=== PATIENT | female | born 1940 | race Caucasian/White ===

== ENCOUNTER → 2016-10-31 | Outpatient (REF) | payer MEDICARE ==
[2016-11-03 10:25] LABS: ALBUMIN 3.7 GM/DL (3.2-5.2); ALBUMIN/GLOBULIN RATIO 1.03 (1.00-1.93); ALKALINE PHOSPHATASE 45 U/L (45-117); ALT/SGPT 18 U/L (12-78); ANION GAP 8 MEQ/L (8-16); AST/SGOT 17 U/L (15-37); BILIRUBIN,TOTAL 0.3 MG/DL (0.2-1.0); BLOOD UREA NITROGEN 34 MG/DL (7-18); CALCIUM LEVEL 8.7 MG/DL (8.8-10.2); CARBON DIOXIDE LEVEL 27 MEQ/L (21-32); CHLORIDE LEVEL 110 MEQ/L (98-107); CREATININE FOR GFR 0.73 MG/DL (0.55-1.02); GLOMERULAR FILTRATION RATE > 60.0 (>39); GLUCOSE, FASTING 87 MG/DL (83-110); POTASSIUM SERUM 4.6 MEQ/L (3.5-5.1); SODIUM LEVEL 145 MEQ/L (136-145); TOTAL PROTEIN 7.3 GM/DL (6.4-8.2)
[2016-11-04 12:34] LABS: CA 125 207.5 U/ML (<30.2)
== END ==
LOC: M LAB REF 10:44
PROVIDERS: ATTEND Obstetrics & Gynecology
DX: N86 Erosion and ectropion of cervix uteri (principal); N95.0 Postmenopausal bleeding; N81.3 Complete uterovaginal prolapse

== ENCOUNTER → 2016-10-31 | Outpatient (REF) | payer MEDICARE ==
[2016-10-31 15:09] LABS: BASO % 0.5 % (0.0-1.0); EOS # 0.1 K/mm3 (0.0-0.50); LARGE UNSTAINED CELL # 0.1 K/mm3 (0.0-0.4); LARGE UNSTAINED CELL % 1.9 % (0.0-4.0); LYMPH % 19.3 % (24.0-44.0); MEAN CORPUSCULAR HEMOGLOBIN 27.6 pg (27.0-33.0); MEAN CORPUSCULAR VOLUME 86.2 fl (80.0-96.0); MONO # 0.3 K/mm3 (0.0-0.8); MONO % 7.1 % (0.0-5.0); NEUTROPHILS # 3.3 K/mm3 (1.8-7.7); NEUTROPHILS % 68.2 % (36.0-66.0); PLATELET COUNT, AUTOMATED 351 k/mm3 (150-450); WHITE BLOOD COUNT 4.8 K/mm3 (4.0-10.0)
== END ==
LOC: M LAB REF 14:23
PROVIDERS: ATTEND Obstetrics & Gynecology
DX: N86 Erosion and ectropion of cervix uteri (principal)

== ENCOUNTER → 2016-11-03 | Outpatient (CLI) | payer MEDICARE ==
[~2016-11-03] MED LIST: GASTROGRAFIN SOLUTION 30ML (Q9963) As Ordered ONE; ISOVUE-370 76% 100ML VIAL (Q9967) As Ordered ONE
--- NOTE | 2016-11-03 12:00 | REP ---
CT study abdomen and pelvis with IV and oral contrast: History: Bleeding from erosion of cervix, vaginal prolapse. Question malignancy. Comparison study: January 30, 2006. CT contrast dose: 100 ml of Isovue [address] findings: Preliminary digital check writer radiograph demonstrates clips in the right upper quadrant post cholecystectomy. The lung bases are essentially clear. The liver and the spleen are normal in size, homogeneous in texture on postcontrast images. Clips are noted in the gallbladder fossa on axial images. No pancreatic abnormality is seen. The adrenal glands have a normal appearance. The kidneys enhance symmetrically and are morphologically intact bilaterally. Normal caliber aorta is seen. No retroperitoneal mass or adenopathy is seen. There is diverticulosis affecting the sigmoid colon and descending colon. There is mild mural thickening and pericolonic stranding in the distal descending sigmoid junction which may reflect mild diverticulitis. This should be correlated clinically. Small and large intestinal bowel loops are otherwise unremarkable. The appendix is not separately identified but no CT evidence of appendicitis is seen. No pelvic adenopathy is seen. No ovarian mass or cyst is seen. No free fluid is noted. There is fibroid change in the uterus including a dystrophic calcification in a subserosal fibroid posterior in the uterus. Uterine dimensions are 6.3 cm anterior to posterior including the fibroid, by 7.9 cm cranial to caudal, by 5.5 cm right to left. Urinary bladder is unremarkable. No bony destructive lesion is seen. No abdominal wall defect is observed. Impression: 1. Low density areas in the uterus consistent with fibroids. A calcified fibroid is seen peripherally in the uterus posteriorly. Mild uterine enlargement. 2. Left colonic diverticulosis with CT evidence consistent with mild diverticulitis at the descending sigmoid junction. 3. Postcholecystectomy. Signed by Gary San MD 11/03/2016 12:38 P
== END ==
LOC: M RAD 09:05
PROVIDERS: ATTEND Obstetrics & Gynecology
DX: N86 Erosion and ectropion of cervix uteri (principal); D25.2 Subserosal leiomyoma of uterus; K57.32 Diverticulitis of large intestine without perforation or abscess without bleeding
CPT/HCPCS: 74177; Q9963; Q9967

== ENCOUNTER → 2016-11-20 | Outpatient (CLI) | payer MEDICARE ==
--- NOTE | 2016-11-23 10:05 | RADONC ---
RADIATION ONCOLOGY CONSULTATION NOTE DATE: 11/20/2016 CHART NUMBER: [id number] DIAGNOSIS: Cervix/uterine cancer. ECOG PERFORMANCE STATUS: 0. CONSULTATION NOTE: Ms. 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 HISTORY OF PRESENT ILLNESS: The patient was in the usual state of health, but began developing some cervical discharge. On 11/13/2016 she underwent a cervical biopsy with pathology revealing a moderately differentiated adenocarcinoma, grade 2 consistent with an endometrial primary. It was noted that the amino peroxidase stains for estrogen and progesterone receptor positive for strongly positive as was the stain for Vimentin. This supports the diagnosis of an endometrial primary. Stains for P16 and CEA typically positive cervical adenocarcinomas were both negative. The pathology therefore was consistent with an endometrial adenocarcinoma. Clinically the lesion was described by Dr. Link as abnormal exophytic friable red 3 cm in diameter with extension to the vagina at the 5 o'clock position. 1-2 cm of extension was noted. It was noted to be movable. Parametria were negative. A CT scan of the pelvis and abdomen were undertaken and fibroids were seen in the uterus including a dystrophic calcification in the subserosal fibroid posterior in the uterus. The uterine dimensions were 6.3 cm anterior to posterior including the fibroid by 7.9 cm cranial to caudal by a 5.5 cm right to left. There was no lymphadenopathy seen. The patient has now been referred to us for discussion of the external beam portion of her treatment. She is also here to discuss her other therapeutic options. PAST MEDICAL HISTORY: The patient's past medical history is positive for glaucoma. She had a cholecystectomy in the past. ALLERGIES: The patient has NO KNOWN DRUG ALLERGIES. SOCIAL HISTORY: The patient does not smoke cigarettes nor abuse alcohol. FAMILY HISTORY: The patient's family history is positive for a father with lung cancer. REVIEW OF SYSTEMS: The patient's review of systems is noncontributory. She denies nausea, vomiting, fevers, chills, night sweats, diplopia, headaches, anxiety or depression, anorexia, weight loss, visual disturbances, chest pain, urinary or bowel difficulties, bone pain, or neurological problems. PHYSICAL EXAMINATION: The patient is a well-developed, well-nourished, female in no acute distress. HEENT exam is normocephalic, atraumatic. Extraocular movements are intact. There is no palpable cervical, supraclavicular, infraclavicular, axillary, or inguinal lymphadenopathy present. Lungs are clear to auscultation and percussion. Heart has a regular rate and rhythm. Abdomen is benign with no hepatosplenomegaly, masses, or tenderness. Medical Numerical Control Operator examination was deferred as it has just been undertaken by Dr. Link and will be undertaken shortly by Dr. Amezquita. Skeletal examination reveals no tenderness to pressure or percussion of the bony skeleton. Extremities reveal no clubbing, cyanosis, or edema. Neurologic exam is grossly intact, as is the remainder of the physical examination. ASSESSMENT: I had a very lengthy discussion with this patient at this time. If this patient were to undergo radiation in addition to external beam treatment she would require brachytherapy. We do not do brachytherapy at this facility and therefore I have set her up to be seen by Dr. Amezquita for evaluation for eligibility for the brachytherapy portion. I have also reviewed this patient's CT scans in detail. I have some concerns as to whether or not external beam brachytherapy would be the best choice for her. There are notable fibroid issues in the uterus itself and therefore a good isodose distribution for brachytherapy may be quite difficult. In addition, the tumor itself appears to be an endometrial primary thereby making adequate dose to the endometrium all the more necessary. I look forward to Dr. Amezquita's expert opinion and our close collaboration on this case. If the patient were to consider surgery she would still require postoperative radiation. If the patient were to undergo primary radiation and brachytherapy then we can coordinate that as well. I will defer to Dr. Amezquita's expertise with regards to any systemic therapy. Once again, I have referred the patient to Dr. Amezquita for further discussion. Once again thank you for allowing us to participate in the care of this very pleasant woman. I will keep you informed of any new developments as they occur. cc: MD Marco Joshua MD Scott Mitchell, MD
--- NOTE | 2016-12-09 11:12 | RADONC ---
RADIATION ONCOLOGY PROGRESS NOTE DATE: 12/08/2016 CHART NUMBER: [id number] Amezquita today, and he has reviewed Ms. Delacruz's pathology and physical examination. He and I had a very lengthy discussion, and he believes that this patient would be better served with hysterectomy. I agree wholeheartedly. In light of his recommendations, the patient will be undergoing surgery and will be returned to me for consideration of postoperative radiation therapy in an attempt to increase the likelihood of achieving local control. I look forward to working closely with Dr. Amezquita in the management of this patient, and I thank him for his expert opinion.
== END ==
LOC: M ONCR 14:05
PROVIDERS: ATTEND Radiology Radiation Oncology
DX: C55 Malignant neoplasm of uterus, part unspecified (principal)

== ENCOUNTER → 2016-12-10 | Outpatient (CLI) | payer MEDICARE ==
--- NOTE | 2016-12-14 09:40 | REP ---
Whole body PET CT scan: The the study is performed for staging of endometrial carcinoma. Comparison is the abdomen and pelvis CT dated 11/03/2016. Scanning is performed from skull base to the upper thighs. Neck and supraclavicular areas: There are no hypermetabolic foci. Chest: There is hypermetabolic uptake in a normal-sized node at the thoracic inlet on the left with the standard uptake value maximally measuring 14.7. There is hypermetabolic uptake in a left perihilar normal size node with the standard uptake value measuring 5.4. There is hypermetabolic uptake in a 5 mm node at the azygo-esophageal recess with the standard uptake value maximally measuring 6.1. Abdomen, pelvis and upper thighs: There is a 4 cm hypermetabolic focus in the uterus with a maximal standard uptake value measuring 29.0. There is physiologic radio labeling of the bladder anterior to the uterus. There is hypermetabolic uptake in a prevertebral node measuring 1.6 cm in diameter, anterior to the L3 vertebral body, the standard uptake value measures 10.0. There is hypermetabolic uptake in a prevertebral 4 mm node anterior to the the L4 vertebral body. The standard uptake value maximally measures 7.5. There is physiologic radio labeling of the renal pelves and ureters. There is nonspecific bowel uptake. Impression: There is hypermetabolic uptake in a thoracic 11 node on the left. There is hypermetabolic uptake in a left perihilar node. There is hypermetabolic uptake in a node at the azygo-esophageal recess. There is a large hypermetabolic focus in the uterus. There is hypermetabolic uptake in prevertebral nodes anterior to L3 and anterior to L4. The studies performed with 10 mCi of F 18 FDG. Signed by Kendall Saunders MD 12/14/2016 09:32 A
== END ==
LOC: M PLARAD 07:38
PROVIDERS: ATTEND Internal Medicine Medical Oncology
DX: C54.1 Malignant neoplasm of endometrium (principal)
CPT/HCPCS: 78815; A9552

== ENCOUNTER → 2017-01-27 | Outpatient (CLI) | payer MEDICARE ==
--- NOTE | 2017-01-29 08:12 | RADONC ---
RADIATION ONCOLOGY CONSULTATION NOTE DATE: 01/27/2017 CHART NUMBER: [id number] DIAGNOSIS: Uterine cancer. ECOG PERFORMANCE STATUS: 0. CONSULTATION NOTE: Ms. 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 The patient was initially seen by us on 11/20/2016 for discussion of possible postoperative radiation therapy in an attempt to achieve increased likelihood of achieving local control. Since the patient was seen by us, she underwent an exploratory laparotomy, total abdominal hysterectomy, bilateral salpingo-oophorectomy, bilateral pelvic lymphadenectomy, paraaortic lymph node sampling and omental biopsy. The procedure was done on 12/30/[address] Sergey Amezquita Jr. Pathology revealed a poorly differentiated endometrioid carcinoma with squamous differentiation. The tumor extended into the serosa. Cervical stromal extension was present and extensive. The tumor extended very close to the cauterized ectocervical margin. In addition, the parametrium on the left was positive for malignancy. Lymph vascular invasion was present and extensive. A total of four left pelvic lymph nodes were sampled and one was positive for metastatic adenocarcinoma. Two right pelvic lymph nodes were negative for metastatic disease. 1/4 paraaortic lymph nodes was also positive for metastatic adenocarcinoma. The patient is scheduled to initiate systemic therapy on and is presenting to us for consideration of external beam radiation in attempt to increase the likelihood of achieving local control. REVIEW OF SYSTEMS: The patient's review of systems is noncontributory. She has done well since surgery. Denies nausea, vomiting, fevers, chills, night sweats, diplopia, headaches, anxiety or depression, anorexia, weight loss, visual disturbances, chest pain, urinary or bowel difficulties, bone pain, or neurological problems. PHYSICAL EXAMINATION: The patient is a well-developed, well-nourished, 76-year-old female in no acute distress. HEENT exam is normocephalic, atraumatic. Extraocular movements are intact. There is no palpable cervical, supraclavicular, infraclavicular, axillary, or inguinal lymphadenopathy present. Lungs are clear to auscultation and percussion. Heart has a regular rate and rhythm. Abdomen is benign with no hepatosplenomegaly, masses, or tenderness. CHIEF METEOROLOGIST Exam: Deferred. Skeletal examination reveals no tenderness to pressure or percussion of the bony skeleton. Extremities reveal no clubbing, cyanosis, or edema. Neurologic exam is grossly intact, as is the remainder of the physical examination. ASSESSMENT: Clearly, the patient has stage IV disease at this point and systemic therapy is the mainstay of her treatment. In light of the extensive nature, however, of her disease, she is at great risk for local failure and external beam radiation therapy plus or minus intravaginal brachytherapy may be a consideration to increase the likelihood of achieving local control. As per my discussion with Dr. Norberto Waters, our medical oncologist, we are planning on delivering concomitant systemic therapy and local treatment. I have therefore scheduled the patient for simulation and initiation of treatment planning. I have once again discussed with the patient in detail the potential benefits as well as possible acute and chronic sequelae of external beam radiation therapy. We discussed logistics of treatment planning, simulation and subsequent fractionated daily radiation treatments. We will coordinate this patient's care with our medical oncologist as well as her other physicians. Thank you for allowing us to participate in the care of this very pleasant woman. If I could be of any further assistance or provide you with any information, please free to contact me anytime. As always warm regards. cc: MD Marco Marquez Jr., MD Dequan Dobbins MD
== END ==
LOC: M ONCR 09:41
PROVIDERS: ATTEND Radiology Radiation Oncology
DX: C54.1 Malignant neoplasm of endometrium (principal)

== ENCOUNTER 2017-02-04 13:39 | Outpatient (RCR) | payer MEDICARE ==
--- NOTE | 2017-02-06 14:05 | RADONC ---
RADIATION ONCOLOGY SIMULATION NOTE DATE: 02/04/2017 CHART NUMBER: [id number] Ms. Delacruz was taken to the CT scan for CT simulation of her pelvic field. CT was accomplished without difficulty or discomfort. Radiation treatment planning is underway and radiation treatments will begin subsequently. I was physically present throughout the course of CT simulation. An immobilization device was created without difficulty or discomfort. Radiation treatments will begin subsequently.
[2017-02-11] MEDS ORDERED: FENO145T PO (14:23)
[2017-02-11] MEDS ORDERED: ENOX40IN3 SQ (14:23)
[2017-02-11] MEDS ORDERED: VITMTA PO (18:51)
[2017-02-11] MEDS ORDERED: VISI1TAB PO (18:51)
[2017-02-11] MEDS ORDERED: CALC600T31 PO (18:51)
== END 2017-02-12 ==
LOC: M ONCR 13:39
PROVIDERS: ATTEND Radiology Radiation Oncology
DX: C53.9 Malignant neoplasm of cervix uteri, unspecified (principal)

== ENCOUNTER → 2017-02-04 | Outpatient (CLI) | payer MEDICARE ==
[~2017-02-04] MED LIST changes: +CALC600T31 PO; +ENOX40IN3 SQ; +FENO145T PO; -GASTROGRAFIN SOLUTION 30ML (Q9963) As Ordered ONE; -ISOVUE-370 76% 100ML VIAL (Q9967) As Ordered ONE; +VISI1TAB PO; +VITMTA PO
== END ==
LOC: M RAD 10:29
PROVIDERS: ATTEND Radiology Radiation Oncology
DX: C53.9 Malignant neoplasm of cervix uteri, unspecified (principal)

== ENCOUNTER 2017-02-11 14:10 | Emergency (ER) | payer MEDICARE ==
[~2017-02-11] VITALS: Ht 154.9 cm; Wt 53.2 kg
[2017-02-11] MEDS ORDERED: FENO145T PO (14:23)
[2017-02-11] MEDS ORDERED: ENOX40IN3 SQ (14:23)
[2017-02-11] MEDS ORDERED: NS 1,000 ML IV ONE ×2 (14:45→16:30)
[2017-02-11 15:09] LABS: BASO % 0.7 % (0.0-1.0); EOS # 0.2 10^3/uL (0.0-0.50); EOS % 2.6 % (0.0-3.0); IMMATURE GRANULOCYTE % 0.3 % (0-0); LYMPH # 1.1 10^3/uL (1.5-4.5); LYMPH % 17.5 % (24.0-44.0); MEAN CORPUSCULAR HEMOGLOBIN 27.6 pg (27.0-33.0); MEAN CORPUSCULAR VOLUME 86.2 fl (80.0-96.0); MONO # 0.5 10^3/uL (0.0-0.8); MONO % 7.8 % (0.0-5.0); NEUTROPHILS # 4.4 10^3/uL (1.8-7.7); NEUTROPHILS % 71.1 % (36.0-66.0); PLATELET COUNT, AUTOMATED 378 10^3/uL (150-450); RED CELL DISTRIBUTION WIDTH 13.6 % (11.5-14.5); WHITE BLOOD COUNT 6.1 10^3/uL (4.0-10.0)
[2017-02-11 15:44] LABS: CALCIUM LEVEL 10.1 MG/DL (8.8-10.2); CREATININE FOR GFR 0.97 MG/DL (0.55-1.02); GLOMERULAR FILTRATION RATE 59.8 (>39); POTASSIUM SERUM 3.9 MEQ/L (3.5-5.1)
[2017-02-11 16:43] LABS: INR 1.11
[2017-02-11] MEDS ORDERED: CLINDAMYCIN 900 MG in APPROPRIATE DILUENT 1 EA IV ONE (17:45)
[2017-02-11] MEDS ORDERED: VITMTA PO (18:51)
[2017-02-11] MEDS ORDERED: CALC600T31 PO (18:51)
[2017-02-11] MEDS ORDERED: VISI1TAB PO (18:51)
[2017-02-11 19:10] VITALS: BP 124/64
== END 2017-02-11 19:12 | disposition home or self-care (01) ==
LOC: M ED 14:10
DX: N93.8 Other specified abnormal uterine and vaginal bleeding (principal); Z85.9 Personal history of malignant neoplasm, unspecified; Z79.899 Other long term (current) drug therapy

== ENCOUNTER 2017-02-13 14:47 | Outpatient (RCR) | payer MEDICARE | END 2017-03-15 | LOC: M ONCR 14:47 | DX: C53.9 Malignant neoplasm of cervix uteri, unspecified (principal) | CPT/HCPCS: 77280 ==

== ENCOUNTER → 2017-03-11 | Outpatient (REF) | payer MEDICARE ==
[2017-03-11 13:51] LABS: FERRITIN 155 NG/ML (8-252); PERCENT SATURATION 14.4 % (13.2-45.0); TOTAL IRON BINDING CAPACITY 389 UG/DL (250-450)
== END ==
LOC: M LAB REF 12:44
DX: C53.8 Malignant neoplasm of overlapping sites of cervix uteri (principal); Z51.11 Encounter for antineoplastic chemotherapy
CPT/HCPCS: 83550

== ENCOUNTER 2017-03-12 14:44 | Inpatient (IN) | payer MEDICARE ==
[2017-03-12] MEDS: ONDANSETRON 4MG/2ML VIAL (J2405) IV ×3 (15:30→21:42)
[2017-03-12] MEDS: NS 1,000 ML IV (15:30)
[2017-03-12 15:57] LABS: BASO % 0.5 % (0.0-1.0); EOS # 0.1 10^3/uL (0.0-0.50); EOS % 0.8 % (0.0-3.0); HEMATOCRIT 30.3 % (36.0-47.0); HEMOGLOBIN 9.8 g/dl (12.0-16.0); IMMATURE GRANULOCYTE # 0.1 10^3/uL (0-0); IMMATURE GRANULOCYTE % 0.8 % (0-0); LYMPH % 1.3 % (24.0-44.0); MEAN CORPUSCULAR HEMOGLOBIN 27.8 pg (27.0-33.0); MEAN CORPUSCULAR HGB CONC 32.3 g/dl (32.0-36.5); MEAN CORPUSCULAR VOLUME 85.8 fl (80.0-96.0); MONO # 0.8 10^3/uL (0.0-0.8); NEUTROPHILS # 6.4 10^3/uL (1.8-7.7); PLATELET COUNT, AUTOMATED 346 10^3/uL (150-450); RED BLOOD COUNT 3.53 10^6/uL (4.00-5.40); RED CELL DISTRIBUTION WIDTH 14.7 % (11.5-14.5); WHITE BLOOD COUNT 7.5 10^3/uL (4.0-10.0)
[2017-03-12 16:08] LABS: ALBUMIN 3.6 GM/DL (3.2-5.2); ALBUMIN/GLOBULIN RATIO 1.06 (1.00-1.93); ALKALINE PHOSPHATASE 39 U/L (45-117); ALT/SGPT 17 U/L (12-78); ANION GAP 7 MEQ/L (8-16); AST/SGOT 16 U/L (7-37); BILIRUBIN,DIRECT < 0.1 MG/DL (0.0-0.2); BILIRUBIN,TOTAL 0.3 MG/DL (0.2-1.0); BLOOD UREA NITROGEN 30 MG/DL (7-18); CALCIUM LEVEL 9.1 MG/DL (8.8-10.2); CARBON DIOXIDE LEVEL 28 MEQ/L (21-32); CHLORIDE LEVEL 107 MEQ/L (98-107); CREATININE FOR GFR 0.69 MG/DL (0.55-1.02); GLOMERULAR FILTRATION RATE > 60.0 (>39); GLUCOSE, FASTING 164 MG/DL (83-110); LIPASE 97 U/L (73-393); POTASSIUM SERUM 3.1 MEQ/L (3.5-5.1); SODIUM LEVEL 142 MEQ/L (136-145)
[2017-03-12] MEDS: MORPHINE 2 MG/ML 1ML SYRINGE IV ×2 (16:11→19:28)
[2017-03-12] MEDS ORDERED: ISOVUE-370 76% 100ML VIAL (Q9967) As Ordered (16:13)
[2017-03-12 16:29] LABS: LYMPH # 0.1 10^3/uL (1.5-4.5); POSITIVE DIFF POS FLAG
[2017-03-12 16:30] LABS: NEUTROPHILS % 85.6 % (36.0-66.0)
[2017-03-12] MEDS: NS 500 ML IV (18:07)
[2017-03-12] MEDS ORDERED: BISACODYL 10 MG SUPP PR (18:15)
[2017-03-12 19:00] LABS: MAGNESIUM LEVEL 2.3 MG/DL (1.8-2.4)
[2017-03-12 19:07] LABS: LACTIC ACID SEPSIS PROTOCOL 1.5 MMOL/L (0.4-2.0)
[2017-03-12] MEDS: KCL 10MEQ IN 100ML SWI (KRUN) 10 MEQ in APPROPRIATE DILUENT 1 EA IV ×2 (19:36→19:44)
[2017-03-12] MEDS: LATANOPROST 0.005% OPHTH SOLN 2.5 ML OD (21:00)
[2017-03-12] MEDS: PANTOPRAZOLE 40MG INJ (PROTONIX) (C9113) IV (21:27)
[2017-03-12] MEDS: KCL 40MEQ IN D5/0.45NS 1000ML 1,000 ML IV (21:28)
[2017-03-12] MEDS: HEPARIN SOD (PORCINE) 5000 UNITS/ML VIAL SC (21:28)
[2017-03-12] MEDS ORDERED: HEPARIN SOD (PORCINE) 5000 UNITS/ML VIAL SC (22:00)
[2017-03-13 06:22] LABS: BASO % 0.5 % (0.0-1.0); EOS # 0.1 10^3/uL (0.0-0.50); EOS % 2.5 % (0.0-3.0); HEMATOCRIT 25.7 % (36.0-47.0); HEMOGLOBIN 8.1 g/dl (12.0-16.0); IMMATURE GRANULOCYTE % 0.5 % (0-0); MEAN CORPUSCULAR HEMOGLOBIN 27.8 pg (27.0-33.0); MEAN CORPUSCULAR HGB CONC 31.5 g/dl (32.0-36.5); MEAN CORPUSCULAR VOLUME 88.3 fl (80.0-96.0); MONO # 0.6 10^3/uL (0.0-0.8); MONO % 12.8 % (0.0-5.0); NEUTROPHILS # 3.6 10^3/uL (1.8-7.7); NEUTROPHILS % 81.7 % (36.0-66.0); PLATELET COUNT, AUTOMATED 253 10^3/uL (150-450); RED BLOOD COUNT 2.91 10^6/uL (4.00-5.40); RED CELL DISTRIBUTION WIDTH 15.2 % (11.5-14.5); WHITE BLOOD COUNT 4.4 10^3/uL (4.0-10.0)
[2017-03-13 06:35] LABS: ANION GAP 6 MEQ/L (8-16); BLOOD UREA NITROGEN 27 MG/DL (7-18); CARBON DIOXIDE LEVEL 26 MEQ/L (21-32); CHLORIDE LEVEL 115 MEQ/L (98-107); CREATININE FOR GFR 0.68 MG/DL (0.55-1.02); GLOMERULAR FILTRATION RATE > 60.0 (>39); GLUCOSE, FASTING 104 MG/DL (83-110); MAGNESIUM LEVEL 2.2 MG/DL (1.8-2.4); POTASSIUM SERUM 4.7 MEQ/L (3.5-5.1); SODIUM LEVEL 147 MEQ/L (136-145)
[2017-03-13 07:08] LABS: LYMPH # 0.1 10^3/uL (1.5-4.5); POSITIVE DIFF POS FLAG
[2017-03-13] MEDS: KCL 40MEQ IN D5/0.45NS 1000ML 1,000 ML IV (07:41)
[2017-03-13] MEDS: HEPARIN SOD (PORCINE) 5000 UNITS/ML VIAL SC ×2 (09:01→20:44)
[2017-03-13] MEDS: D5W/0.45% SODIUM CHLORIDE 1,000 ML IV ×2 (13:12→23:02)
[2017-03-13] MEDS: PANTOPRAZOLE 40MG INJ (PROTONIX) (C9113) IV (20:44)
[2017-03-13] MEDS: LATANOPROST 0.005% OPHTH SOLN 2.5 ML OD (20:45)
[2017-03-14] MEDS: D5W/0.45% SODIUM CHLORIDE 1,000 ML IV ×3 (03:30→20:25)
[2017-03-14 05:12] LABS: BASO % 0.6 % (0.0-1.0); EOS # 0.3 10^3/uL (0.0-0.50); EOS % 8.9 % (0.0-3.0); HEMATOCRIT 24.9 % (36.0-47.0); HEMOGLOBIN 7.9 g/dl (12.0-16.0); IMMATURE GRANULOCYTE % 0.3 % (0-0); LYMPH % 3.8 % (24.0-44.0); MEAN CORPUSCULAR HEMOGLOBIN 28.1 pg (27.0-33.0); MEAN CORPUSCULAR HGB CONC 31.7 g/dl (32.0-36.5); MEAN CORPUSCULAR VOLUME 88.6 fl (80.0-96.0); MONO # 0.5 10^3/uL (0.0-0.8); MONO % 15.8 % (0.0-5.0); NEUTROPHILS # 2.2 10^3/uL (1.8-7.7); NEUTROPHILS % 70.6 % (36.0-66.0); PLATELET COUNT, AUTOMATED 213 10^3/uL (150-450); RED BLOOD COUNT 2.81 10^6/uL (4.00-5.40); WHITE BLOOD COUNT 3.2 10^3/uL (4.0-10.0)
[2017-03-14 05:24] LABS: ANION GAP 5 MEQ/L (8-16); BLOOD UREA NITROGEN 14 MG/DL (7-18); CALCIUM LEVEL 7.6 MG/DL (8.8-10.2); CARBON DIOXIDE LEVEL 28 MEQ/L (21-32); CHLORIDE LEVEL 108 MEQ/L (98-107); CREATININE FOR GFR 0.59 MG/DL (0.55-1.02); GLOMERULAR FILTRATION RATE > 60.0 (>39); GLUCOSE, FASTING 86 MG/DL (83-110); POTASSIUM SERUM 3.8 MEQ/L (3.5-5.1); SODIUM LEVEL 141 MEQ/L (136-145)
[2017-03-14 05:27] LABS: LYMPH # 0.1 10^3/uL (1.5-4.5); POSITIVE DIFF POS FLAG
[2017-03-14 08:31] LABS: RETIC HEMOGLOBIN EQUIVALENT 32.9 pg (24-36); RETICULOCYTE # 45.9 10^9/L (17-77); RETICULOCYTE % 1.5 % (0.5-1.5)
[2017-03-14] MEDS: HEPARIN SOD (PORCINE) 5000 UNITS/ML VIAL SC ×2 (08:50→20:25)
[2017-03-14 09:08] LABS: ALBUMIN/GLOBULIN RATIO 1.07 (1.00-1.93); ALKALINE PHOSPHATASE 37 U/L (45-117); ALT/SGPT 15 U/L (12-78); ANION GAP 7 MEQ/L (8-16); AST/SGOT 15 U/L (7-37); BILIRUBIN,TOTAL 0.3 MG/DL (0.2-1.0); BLOOD UREA NITROGEN 13 MG/DL (7-18); CALCIUM LEVEL 7.6 MG/DL (8.8-10.2); CARBON DIOXIDE LEVEL 28 MEQ/L (21-32); CHLORIDE LEVEL 108 MEQ/L (98-107); CREATININE FOR GFR 0.64 MG/DL (0.55-1.02); FERRITIN 224 NG/ML (8-252); GLOMERULAR FILTRATION RATE > 60.0 (>39); GLUCOSE, FASTING 77 MG/DL (83-110); IRON (FE) 131 UG/DL (50-170); PERCENT SATURATION 43.2 % (13.2-45.0); POTASSIUM SERUM 4.2 MEQ/L (3.5-5.1); SODIUM LEVEL 143 MEQ/L (136-145); TOTAL IRON BINDING CAPACITY 303 UG/DL (250-450); TOTAL PROTEIN 5.8 GM/DL (6.4-8.2)
[2017-03-14] MEDS: LATANOPROST 0.005% OPHTH SOLN 2.5 ML OD (20:25)
[2017-03-14] MEDS: PANTOPRAZOLE 40MG INJ (PROTONIX) (C9113) IV (20:25)
[2017-03-15 04:10] LABS: BASO % 0.5 % (0.0-1.0); EOS # 0.3 10^3/uL (0.0-0.50); EOS % 12.8 % (0.0-3.0); HEMATOCRIT 24.9 % (36.0-47.0); IMMATURE GRANULOCYTE % 0.9 % (0-0); LYMPH % 7.1 % (24.0-44.0); MEAN CORPUSCULAR HEMOGLOBIN 28.3 pg (27.0-33.0); MEAN CORPUSCULAR HGB CONC 32.1 g/dl (32.0-36.5); MONO # 0.3 10^3/uL (0.0-0.8); MONO % 15.2 % (0.0-5.0); NEUTROPHILS # 1.3 10^3/uL (1.8-7.7); NEUTROPHILS % 63.5 % (36.0-66.0); PLATELET COUNT, AUTOMATED 195 10^3/uL (150-450); RED BLOOD COUNT 2.83 10^6/uL (4.00-5.40); RED CELL DISTRIBUTION WIDTH 14.6 % (11.5-14.5); WHITE BLOOD COUNT 2.1 10^3/uL (4.0-10.0)
[2017-03-15 04:20] LABS: LYMPH # 0.2 10^3/uL (1.5-4.5); POSITIVE DIFF POS FLAG
[2017-03-15 04:23] LABS: ANION GAP 8 MEQ/L (8-16); BLOOD UREA NITROGEN 8 MG/DL (7-18); CALCIUM LEVEL 7.4 MG/DL (8.8-10.2); CARBON DIOXIDE LEVEL 29 MEQ/L (21-32); CHLORIDE LEVEL 110 MEQ/L (98-107); GLOMERULAR FILTRATION RATE > 60.0 (>39); GLUCOSE, FASTING 89 MG/DL (83-110); MAGNESIUM LEVEL 2.2 MG/DL (1.8-2.4); POTASSIUM SERUM 3.4 MEQ/L (3.5-5.1); SODIUM LEVEL 147 MEQ/L (136-145)
[2017-03-15] MEDS: D5W/0.45% SODIUM CHLORIDE 1,000 ML IV (06:43)
[2017-03-15 08:09] LABS: HAPTOGLOBIN 233 mg/dL (34-200)
[2017-03-15] MEDS: HEPARIN SOD (PORCINE) 5000 UNITS/ML VIAL SC ×2 (09:49→20:40)
[2017-03-15] MEDS: POTASSIUM CHLORIDE 10 MEQ SR TABLET PO (09:49)
[2017-03-15] MEDS: SLF 3 ML SYR IV ×3 (14:33→20:40)
[2017-03-15] MEDS: LATANOPROST 0.005% OPHTH SOLN 2.5 ML OD (20:39)
[2017-03-15] MEDS: PANTOPRAZOLE 40MG INJ (PROTONIX) (C9113) IV (20:40)
[2017-03-16 04:38] LABS: BASO % 0.9 % (0.0-1.0); EOS # 0.3 10^3/uL (0.0-0.50); EOS % 8.3 % (0.0-3.0); HEMOGLOBIN 8.7 g/dl (12.0-16.0); IMMATURE GRANULOCYTE % 0.9 % (0-0); LYMPH % 6.1 % (24.0-44.0); MEAN CORPUSCULAR HEMOGLOBIN 28.6 pg (27.0-33.0); MEAN CORPUSCULAR HGB CONC 32.2 g/dl (32.0-36.5); MEAN CORPUSCULAR VOLUME 88.8 fl (80.0-96.0); MONO # 0.4 10^3/uL (0.0-0.8); MONO % 11.3 % (0.0-5.0); NEUTROPHILS # 2.4 10^3/uL (1.8-7.7); NEUTROPHILS % 72.5 % (36.0-66.0); PLATELET COUNT, AUTOMATED 256 10^3/uL (150-450); RED BLOOD COUNT 3.04 10^6/uL (4.00-5.40); RED CELL DISTRIBUTION WIDTH 14.6 % (11.5-14.5); WHITE BLOOD COUNT 3.3 10^3/uL (4.0-10.0)
[2017-03-16 04:57] LABS: ANION GAP 2 MEQ/L (8-16); BLOOD UREA NITROGEN 15 MG/DL (7-18); CALCIUM LEVEL 8.2 MG/DL (8.8-10.2); CARBON DIOXIDE LEVEL 30 MEQ/L (21-32); CHLORIDE LEVEL 111 MEQ/L (98-107); CREATININE FOR GFR 0.54 MG/DL (0.55-1.02); GLOMERULAR FILTRATION RATE > 60.0 (>39); GLUCOSE, FASTING 92 MG/DL (83-110); MAGNESIUM LEVEL 1.8 MG/DL (1.8-2.4); POTASSIUM SERUM 4.3 MEQ/L (3.5-5.1); SODIUM LEVEL 143 MEQ/L (136-145)
[2017-03-16 05:08] LABS: LYMPH # 0.2 10^3/uL (1.5-4.5); POSITIVE DIFF POS FLAG
[2017-03-16] MEDS: SLF 3 ML SYR IV ×2 (06:48→13:27)
[2017-03-16] MEDS: HEPARIN SOD (PORCINE) 5000 UNITS/ML VIAL SC (08:33)
[2017-03-16] MEDS: BISACODYL 10 MG SUPP PR (10:15)
[2017-03-16 10:52] LABS: FOLATE > 24.0 NG/ML (>5.4); VITAMIN B12 LEVEL 354 PG/ML (247-911)
== END 2017-03-16 14:04 | disposition home or self-care (01) | DRG 388 ==
LOC: M ED 14:44 → M ED INP 18:15 → M PCU 21:01
DX: K56.50 Intestinal adhesions [bands], unspecified as to partial versus complete obstruction (principal); D61.810 Antineoplastic chemotherapy induced pancytopenia; C54.1 Malignant neoplasm of endometrium; Z79.899 Other long term (current) drug therapy; E78.5 Hyperlipidemia, unspecified; H40.9 Unspecified glaucoma; E87.6 Hypokalemia; Z92.3 Personal history of irradiation; Z92.21 Personal history of antineoplastic chemotherapy

== ENCOUNTER 2017-03-17 11:29 | Outpatient (RCR) | payer MEDICARE | END 2017-04-15 | LOC: M ONCR 11:29 | DX: C53.9 Malignant neoplasm of cervix uteri, unspecified (principal) | CPT/HCPCS: 77336 ==

== ENCOUNTER → 2017-03-20 | Outpatient (REF) | payer MEDICARE ==
[2017-03-20 14:19] LABS: CA 125 12.3 U/ML (<30.2)
== END ==
LOC: M LAB REF 13:25
DX: C53.9 Malignant neoplasm of cervix uteri, unspecified (principal)
CPT/HCPCS: 86304

== ENCOUNTER → 2017-05-20 | Outpatient (CLI) | payer MEDICARE | LOC: M ONCR 10:05 | DX: C53.9 Malignant neoplasm of cervix uteri, unspecified (principal) | CPT/HCPCS: G0463 ==

== ENCOUNTER → 2017-08-24 | Outpatient (CLI) | payer MEDICARE | LOC: M WHC 12:22 | DX: Z12.31 Encounter for screening mammogram for malignant neoplasm of breast (principal); Z78.0 Asymptomatic menopausal state; Z85.9 Personal history of malignant neoplasm, unspecified; Z92.21 Personal history of antineoplastic chemotherapy | CPT/HCPCS: 77067 ==

== ENCOUNTER → 2017-11-24 | Outpatient (CLI) | payer MEDICARE ==
[~2017-11-24] MED LIST changes: -CALC600T31 PO; -ENOX40IN3 SQ; -FENO145T PO; +GASTROGRAFIN SOLUTION 30ML (Q9963) As Ordered; +ISOVUE-370 76% 100ML VIAL (Q9967) As Ordered; -VISI1TAB PO; -VITMTA PO
== END ==
LOC: M RAD 13:27
DX: C54.1 Malignant neoplasm of endometrium (principal); C79.82 Secondary malignant neoplasm of genital organs; K57.30 Diverticulosis of large intestine without perforation or abscess without bleeding; R91.8 Other nonspecific abnormal finding of lung field
CPT/HCPCS: Q9963

== ENCOUNTER → 2017-12-01 | Outpatient (CLI) | payer MEDICARE ==
[~2017-12-01] MED LIST changes: -GASTROGRAFIN SOLUTION 30ML (Q9963) As Ordered
== END ==
LOC: M RAD 17:13
DX: R91.1 Solitary pulmonary nodule (principal)
CPT/HCPCS: Q9967

== ENCOUNTER → 2018-01-05 | Outpatient (CLI) | payer MEDICARE ==
[2018-01-05 10:55] LABS: HEMATOCRIT 38.7 % (36.0-47.0); HEMOGLOBIN 12.1 g/dl (12.0-15.5); MEAN CORPUSCULAR HEMOGLOBIN 27.5 pg (27.0-33.0); MEAN CORPUSCULAR HGB CONC 31.3 g/dl (32.0-36.5); PLATELET COUNT, AUTOMATED 271 10^3/uL (150-450); RED CELL DISTRIBUTION WIDTH 15.2 % (11.5-14.5); WHITE BLOOD COUNT 4.6 10^3/uL (4.0-10.0)
[2018-01-05 11:39] LABS: ALBUMIN 3.7 GM/DL (3.2-5.2); ALBUMIN/GLOBULIN RATIO 1.06 (1.00-1.93); ALKALINE PHOSPHATASE 64 U/L (45-117); ALT/SGPT 22 U/L (12-78); ANION GAP 8 MEQ/L (8-16); AST/SGOT 36 U/L (7-37); BILIRUBIN,TOTAL 0.3 MG/DL (0.2-1.0); BLOOD UREA NITROGEN 29 MG/DL (7-18); CALCIUM LEVEL 9.5 MG/DL (8.8-10.2); CARBON DIOXIDE LEVEL 27 MEQ/L (21-32); CHLORIDE LEVEL 106 MEQ/L (98-107); CREATININE FOR GFR 0.78 MG/DL (0.55-1.30); GLOMERULAR FILTRATION RATE > 60.0 (>39); GLUCOSE, FASTING 83 MG/DL (70-100); POTASSIUM SERUM 4.4 MEQ/L (3.5-5.1); SODIUM LEVEL 141 MEQ/L (136-145); TOTAL PROTEIN 7.2 GM/DL (6.4-8.2)
== END ==
LOC: M LAB 10:11
DX: C54.1 Malignant neoplasm of endometrium (principal)
CPT/HCPCS: 80053

== ENCOUNTER 2018-04-12 08:54 | Inpatient (IN) | payer MEDICARE ==
[~2018-04-12] VITALS: Ht 165.1 cm; Wt 56.8 kg
[~2018-04-12 08:54] MED LIST changes: +CALC600T31 PO; +ENOX40IN3 SQ; +FENO145T13 PO; +FERR240T PO; +FERR325T3 PO; -ISOVUE-370 76% 100ML VIAL (Q9967) As Ordered; +PROC10TA4 PO; +TRAV04OPD OD; +VISI1TAB PO; +VITMTA PO; +ZOFR4TAB16 PO
--- NOTE | 2018-04-12 09:41 | REP ---
CT brain without contrast: History: Trauma. No comparison brain CT. CT findings: Preliminary digital mail service coordinator radiograph is unremarkable. Bone window settings demonstrate vascular calcification in the carotid siphons. Paranasal sinuses are clear as visualized. No skull fracture is seen. No significant scalp hematoma is appreciated. On soft tissue window settings, there is diffuse mild to moderate cerebral atrophy. There is no evidence of intracranial hemorrhage. Mild small vessel changes are seen in the periventricular white matter. There is no infarct, mass, extra-axial fluid collection, or midline shift. Impression: Vascular calcification and diffuse atrophy. No acute intracranial abnormality. Electronically Signed by Gary San MD 04/12/2018 09:33 A
--- NOTE | 2018-04-12 09:45 | REP ---
CT study of the cervical spine without contrast: History: Trauma. No comparison CT study of the cervical spine. Comparison is made with CT images from a PET CT study dated December 10, 2016. This patient apparently has a history of endometrial malignancy. Most recent CT study of the chest show the pulmonary metastasis. This is dated December 01, 2017. Technique: Helical scanning is acquired and overlapping 2 mm high resolution axial images were generated and reviewed at bone and soft tissue window settings. Coronal and sagittal multiplanar re-formations images are generated. CT findings: There is no evidence of cervical spine element fracture. No skull base fracture is seen. Cervical vertebral body heights are preserved. Alignment is normal. Facet joints are normally aligned bilaterally at each cervical level on multiplanar re-formations images. There is no evidence of intraspinal or paraspinal hematoma. No extra vertebral abnormality is seen. There are degenerative disc changes with narrowing and anterior osteophyte formation at C4 five through C7-T1. Posterior osteophytic ridging is seen at C7-T1 and C6-7. No bony destructive lesion is seen. There are multiple nodules visible in the apices of the lungs consistent with pulmonary metastatic disease similar to the December [address] study of the chest. No soft tissue neck mass or adenopathy is seen. Impression: Degenerative spondylosis changes as above. Incidental pulmonary metastatic lesions noted in the lung apices, otherwise negative CT study of the cervical spine without contrast. No fracture seen. Electronically Signed by Gary San MD 04/12/2018 09:37 A
--- NOTE | 2018-04-12 10:05 | REP ---
Clinical: Trauma. Technique: PA and lateral. Comparison: 01/30/2006 Findings: The cardiac silhouette is within normal limits and stable. Bilateral pulmonary nodules and mass lesions measuring up to 3.5 cm in the left mid lung zone along with suspected hilar adenopathy is most consistent with malignancy/metastatic disease. No focal consolidation, effusion, or pneumothorax. Skeletal structures are intact. Impression: Findings compatible with known pulmonary metastatic disease. No acute mediastinal or pleuroparenchymal trauma/injury. No acute consolidation, effusion, or pneumothorax. Electronically Signed by Kyree Romero MD 04/12/2018 09:57 A
[2018-04-12 11:09] LABS: BASO % 0.4 % (0.0-1.0); EOS # 0.3 10^3/uL (0.0-0.50); EOS % 2.9 % (0.0-3.0); HEMATOCRIT 44.5 % (36.0-47.0); HEMOGLOBIN 14.2 g/dl (12.0-15.5); LYMPH % 2.6 % (24.0-44.0); MEAN CORPUSCULAR HEMOGLOBIN 26.5 pg (27.0-33.0); MEAN CORPUSCULAR HGB CONC 31.9 g/dl (32.0-36.5); MONO % 10.8 % (0.0-5.0); NEUTROPHILS # 7.5 10^3/uL (1.8-7.7); NEUTROPHILS % 82.6 % (36.0-66.0); PLATELET COUNT, AUTOMATED 277 10^3/uL (150-450); RED BLOOD COUNT 5.36 10^6/uL (4.00-5.40); WHITE BLOOD COUNT 9.1 10^3/uL (4.0-10.0)
[2018-04-12 11:49] LABS: BLOOD UREA NITROGEN 49 MG/DL (7-18); CALCIUM LEVEL 14.1 MG/DL (8.8-10.2); CARBON DIOXIDE LEVEL 30 MEQ/L (21-32); CHLORIDE LEVEL 99 MEQ/L (98-107); CPK CREATINE PHOSPHOKINASE 110 U/L (26-192); CREATININE FOR GFR 1.26 MG/DL (0.55-1.30); FREE T4 1.45 NG/DL (0.76-1.46); GLOMERULAR FILTRATION RATE 44.1 (>39); GLUCOSE, FASTING 86 MG/DL (70-100); MAGNESIUM LEVEL 2.2 MG/DL (1.8-2.4); MB/CK RELATIVE INDEX 11.82 (< OR =4); POTASSIUM SERUM 4.2 MEQ/L (3.5-5.1); SODIUM LEVEL 139 MEQ/L (136-145); TROPONIN I 0.07 NG/ML (< 0.10)
[2018-04-12 11:53] LABS: LYMPH # 0.2 10^3/uL (1.5-4.5)
[2018-04-12] MEDS ORDERED: NS 1,000 ML IV ONE (12:00)
[2018-04-12] MEDS ORDERED: CALCITONIN SALMON (MIACALCIN) 400INTERNATIONAL UNITS/2ML INJ (J0630) SQ ONE (12:30)
[2018-04-12] MEDS ORDERED: FERR1TAB8 PO (12:32)
[2018-04-12] MEDS: MULTIVITAMINS/MINERALS THERAP 1 TAB PO SCH (14:32)
[2018-04-12] MEDS: FERROUS SULFATE 325MG TAB PO SCH (14:32)
[2018-04-12] MEDS: NS 1,000 ML IV SCH ×2 (14:32→20:58)
--- NOTE | 2018-04-12 15:27 | HPE ---
DATE OF ADMISSION: 04/12/2018 77-year-old female with past medical history of endometrial carcinoma status post hysterectomy, status post chemoradiation therapy, history of hyperlipidemia, and glaucoma presents to the emergency room after having multiple falls in the last 48 hours. She says that her legs just give out. She had no associated chest pain, palpitations, or shortness of breath with this. She has been followed by Dr. Calix, oncologist, due to the advancement of her cancer, now stage IV recurrent carcinoma. She has not been eating and drinking well for the past few weeks. When she came to the emergency room (ER), she was found to be in acute kidney injury and appeared very dehydrated and was started on a bolus of IV fluids. Also to note, her blood calcium level was found to be extremely high at 14.1. I did tell the nurse practitioner to give the patient subcutaneous calcitonin as well. The patient will be admitted for further management. Again, past medical history of recurrent stage IV endometrial carcinoma, history of hyperlipidemia, and iron deficiency anemia. ALLERGIES: She has no known drug allergies. FAMILY HISTORY: Noncontributory. SOCIAL HISTORY: Patient denies tobacco, alcohol, or illicit drugs. MEDICATIONS: She takes at home are as follows: - calcium 600 mg orally twice a day - fenofibrate 145 mg orally at bedtime - ferrous sulfate 325 mg orally daily - multivitamin one tablet orally daily - Travoprost one drop to right eye nightly Review of systems is negative for all ten major systems except what is mentioned in history of present illness (HPI). Vital signs: Blood pressure is 116/57, heart rate is 87, regular, respiratory rate 20, temperature 99.2, oxygen saturation 97% on room air. Head is atraumatic, normocephalic. Dry mucous membranes noted. Neck is supple, no jugular venous distention (JVD). Lungs are clear to auscultation. S1, S2 audible, no murmurs appreciated. Abdomen is soft, positive bowel sounds. There is no pedal edema. Skin intact. Neurologic examination: Patient is awake, alert, oriented times three. LABORATORY DATA: WBC 9.1, hemoglobin 14.2, hematocrit 44.5, platelets are 277,000, sodium 139, potassium 4.2, chloride 99, CO2 30, BUN 49, creatinine 1.26, calcium 14.1, glucose 86, TSH 1.3. Urinalysis is negative for urinary tract infection (UTI). CT of the head showed no intracranial bleed. CT of the cervical spine showed no fractures. IMPRESSION: 1. Falls. 2. Hypercalcemia. 3. Acute kidney injury (ALDA). PLAN: Patient will be admitted to the medical/surgical floor. Will continue IV fluids normal saline (NS) at 125 mL/hour and will get physical therapy/occupational therapy (PT/OT) involved. Will follow serum calcium levels. I am also sending a diagnostic panel for hypercalcemia. I am going to get intact parathyroid hormone (PTH) and also parathyroid hormone related peptide levels as well as 25-hydroxyvitamin D levels and 125-dihydroxyvitamin D levels. Will continue her preadmission medications. I am holding her calcium at this time. Depending on what her calcium level is in the morning, will consider getting nephrology on board, but for now the calcitonin given and the IV fluids will suffice. Her 12-EKG also did not show any shortened QT intervals. QTs were normal.
[2018-04-12 15:32] LABS: TOTAL 25(OH) VITAMIN D 80.6 NG/ML (30.0-100.0)
[2018-04-12 15:33] LABS: PTH INTACT 12.9 PG/ML (18.5-88.0)
[2018-04-12 17:35] VITALS: BP 126/61
[2018-04-12] MEDS: LATANOPROST 0.005% OPHTH SOLN 2.5 ML OD SCH (21:03)
[2018-04-12] MEDS: FENOFIBRATE 145 MG TAB (TRICOR) PO SCH (21:03)
[2018-04-12] MEDS: HEPARIN SOD (PORCINE) 5000 UNITS/ML VIAL SQ SCH (21:04)
[2018-04-12 22:00] VITALS: BP 106/53
[2018-04-13] MEDS: HEPARIN SOD (PORCINE) 5000 UNITS/ML VIAL SQ SCH ×3 (05:02→21:42)
[2018-04-13] MEDS: NS 1,000 ML IV SCH ×3 (05:04→21:42)
[2018-04-13 06:00] VITALS: BP 109/59
[2018-04-13 06:13] LABS: BASO % 0.5 % (0.0-1.0); EOS # 0.6 10^3/uL (0.0-0.50); EOS % 7.2 % (0.0-3.0); HEMATOCRIT 36.1 % (36.0-47.0); LYMPH # 0.3 10^3/uL (1.5-4.5); LYMPH % 3.7 % (24.0-44.0); MONO # 0.9 10^3/uL (0.0-0.8); NEUTROPHILS # 6.2 10^3/uL (1.8-7.7); NEUTROPHILS % 76.9 % (36.0-66.0); PLATELET COUNT, AUTOMATED 215 10^3/uL (150-450)
[2018-04-13 06:20] LABS: HEMOGLOBIN 11.2 g/dl (12.0-15.5)
[2018-04-13 06:34] LABS: BLOOD UREA NITROGEN 31 MG/DL (7-18); CARBON DIOXIDE LEVEL 25 MEQ/L (21-32); CHLORIDE LEVEL 112 MEQ/L (98-107); CREATININE FOR GFR 0.96 MG/DL (0.55-1.30); GLOMERULAR FILTRATION RATE > 60.0 (>39); GLUCOSE, FASTING 88 MG/DL (70-100); POTASSIUM SERUM 3.4 MEQ/L (3.5-5.1); SODIUM LEVEL 143 MEQ/L (136-145)
[2018-04-13 09:00] VITALS: BP 120/60
[2018-04-13] MEDS ORDERED: MULTIVITAMINS/MINERALS THERAP 1 TAB PO SCH (09:00)
[2018-04-13] MEDS: FERROUS SULFATE 325MG TAB PO SCH (10:13)
[2018-04-13] MEDS: MULTIVITAMINS/MINERALS THERAP 1 TAB PO SCH (10:13)
--- NOTE | 2018-04-13 11:08 | IPN ---
DATE OF SERVICE: 04/13/2018 Julieta is seen on [facility] while rounding for the hospitalists. She has a history of stage IV endometrial cancer squamous cell with innumerable metastases to lung and liver. She is having low back pain. It prohibits her walking. She gets severe pain in her back, and she has fallen. She presented with calcium of 14.1, which has been temporarily treated with a subcutaneous dose of calcitonin and some saline. No bisphosphonates given yet. Her oncologist is Dr. Calix, and she was last seen in January. I have reviewed office note, as well. PHYSICAL EXAMINATION: 120/60, pulse of 84, 97.3 degrees. General appearance: Is elderly, frail, resting in bed, complaining of low back pain. HEENT: Unremarkable. Lungs: Scattered wheezes. Heart: Regular rate and rhythm. Abdomen: Soft and nontender. Low back is tender to palpate over the lumbar region. No peripheral edema. Normal strength in the arms and legs. She is alert and conversant. LABORATORIES: Hemoglobin is 11.2. CBC otherwise unremarkable. Calcium is down to 10.0. Sodium 143, potassium 3.4. PTH intact is low, as expected. Vitamin D level is normal. IMPRESSION: Hypercalcemia. Most certainly from malignancy. I have canceled a bunch of the orders, such as a PTH related peptide and vitamin D assays, as this is certainly malignancy-related. I have ordered Zometa 4 mg intravenous (IV) times one. Will change her IV fluids to include some potassium. I have got a call into Dr. Calix from oncology. The patient would like to talk to her about her situation. Followup laboratory work has been ordered for the morning.
[2018-04-13] MEDS ORDERED: ACETAMINOPHEN 500 MG TAB PO PRN (11:15)
[2018-04-13] MEDS ORDERED: traMADol 50 MG TAB PO PRN (11:15)
--- NOTE | 2018-04-13 11:41 | REP ---
Clinical: Back pain. Technique: AP, lateral views of the lumbosacral spine. Findings: Advanced multilevel degenerative changes from L2-3 through L5-S1 include endplate sclerosis, osteophytosis, hypertrophic facet changes and disc space narrowing. No acute fracture / compression injury or subluxation. Impression: Advanced multilevel degenerative spondylosis. Electronically Signed by Kyree Romero MD 04/13/2018 11:33 A
[2018-04-13] MEDS ORDERED: ZOLEDRONIC ACID 4 MG in D5W 100 ML IV ONE (12:00)
[2018-04-13 14:00] VITALS: BP 116/64
[2018-04-13] MEDS: FENOFIBRATE 145 MG TAB (TRICOR) PO SCH (20:04)
[2018-04-13] MEDS: LATANOPROST 0.005% OPHTH SOLN 2.5 ML OD SCH (20:04)
--- NOTE | 2018-04-13 20:56 | ECGEPIP ---
Stationary ECG Study [facility] - ED Test Date: 2018-04-12 Pat Name: VITA OMALLEY Department: Room: - Gender: F Gas Jockey: : [id number] Requested By: BEN Phillips Order Number: [id number] Reading MD: Ayan Torrez Measurements Intervals [place] Rate: 89 P: 38 WA: 132 QRS: -45 QRSD: 94 T: -16 QT: 360 QTc: 440 Interpretive Statements SINUS RHYTHM POSSIBLE LEFT ATRIAL ENLARGEMENT LEFT ANTERIOR FASCICULAR BLOCK NONSPECIFIC ST & T-WAVE ABNORMALITY SIMILAR TO 03/12/17 Electronically Signed On 04-13-2018 20:56:35 EST by Ayan Torrez
[2018-04-13 22:00] VITALS: BP 121/69
[2018-04-14 06:00] VITALS: BP 107/54
[2018-04-14] MEDS: NS 1,000 ML IV SCH (06:06)
[2018-04-14] MEDS: HEPARIN SOD (PORCINE) 5000 UNITS/ML VIAL SQ SCH ×3 (06:07→21:25)
[2018-04-14 06:25] LABS: HEMATOCRIT 33.4 % (36.0-47.0); HEMOGLOBIN 10.7 g/dl (12.0-15.5); MEAN CORPUSCULAR HEMOGLOBIN 26.2 pg (27.0-33.0); MEAN CORPUSCULAR VOLUME 81.7 fl (80.0-96.0); PLATELET COUNT, AUTOMATED 190 10^3/uL (150-450); RED BLOOD COUNT 4.09 10^6/uL (4.00-5.40); WHITE BLOOD COUNT 7.2 10^3/uL (4.0-10.0)
[2018-04-14 06:50] LABS: BLOOD UREA NITROGEN 18 MG/DL (7-18); CALCIUM LEVEL 9.4 MG/DL (8.8-10.2); CARBON DIOXIDE LEVEL 22 MEQ/L (21-32); CHLORIDE LEVEL 112 MEQ/L (98-107); CREATININE FOR GFR 0.74 MG/DL (0.55-1.30); GLOMERULAR FILTRATION RATE > 60.0 (>39); GLUCOSE, FASTING 84 MG/DL (70-100); POTASSIUM SERUM 3.1 MEQ/L (3.5-5.1); SODIUM LEVEL 142 MEQ/L (136-145)
--- NOTE | 2018-04-14 06:52 | CR ---
DATE OF CONSULTATION: 04/13/2018 REASON FOR CONSULTATION: This is a inpatient hospital consultation for endometrial carcinoma and hypercalcemia. 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 The patient had been found to have, on her recent gynecological examination, studding of the vaginal vault as well as the upper cervical area. It was recommended that the patient go on chemotherapy with topotecan with a weekly regimen. The patient had not gone for any kind of chemotherapy and did not receive any in the outpatient department. She had presented to the hospital with low back pain causing her problems with ambulation and severe back pain. She presented with a calcium of 14.1 that has currently been treated with Zometa 4 mg. The patient had a lumbar spine x-ray that was done on admission, as well as the cervical spine, showing advanced multilevel degenerative spondylosis. She shows no acute fracture, compression injury or subluxation. Chest x-ray also shows findings compatible with known pulmonary metastatic disease. The patient currently is in no pain. She is completed supine in the bed and is able to move her toes and has no problems with bladder control at present. CURRENT MEDICATIONS: Include calcium, fenofibrate, ferrous sulfate, multivitamin, travoprost, and vision. FAMILY HISTORY: Noncontributory. SOCIAL HISTORY: Negative for tobacco or alcohol. REVIEW OF SYSTEMS: She relates that she has had no chest pain, palpitations, but she has not been eating and drinking for over several weeks. She complains of no back pain. Currently, she has no numbness or tingling, generalized fatigue, weakness, lethargy. PHYSICAL EXAMINATION: She is able to engage the examiner in conversation and give some history. Her weight is 56.8 kg, height 165 cm, temperature is 97.3, pulse is 83, respiratory rate is 18, blood pressure is 116/64, and pulse oximetry is 98. HEENT: Normocephalic, atraumatic. Pupils equal, round, reactive to light. Extraocular muscles intact. Her sclera is white, nonicteric. Oropharynx is otherwise clear. NECK: Her neck is supple. CHEST: Clear to auscultation and percussion. CARDIOVASCULAR: S1 and S2 are appreciated with no murmurs. ABDOMEN: Soft, globoid, nontender. NEUROLOGICAL EXAMINATION: Cranial nerves II through XII are intact. She appears to have no sensory or motor deficits at this point . CT shows vascular calcifications, diffuse atrophy, no acute intracranial abnormalities. On her laboratories her WBC count is 8.0, hemoglobin/hematocrit is 11/36, RDW is 15.7, platelets are 215,000, neutrophils are 76, lymphocytes are 3.7, monos are about 11.8. Her chemistries show a sodium of 143, potassium 3.4, chloride of 112, BUN of 31, creatinine of 0.96. On admission, her calcium was 14.1. CPK-MB was 13 and creatinine kinase was 110. IMPRESSION: Impression at this time is grossly metastatic stage IV endometrial carcinoma in a patient with a performance status of 4/4 on the ECOG scale. At this point, the patient is unlikely to be able to receive any more chemotherapy and palliative measures including hospice can be pursued at this particular point. I would recommend IV hydration, monitoring the calcium level and pain management as needed. The patient may not be able to be taken care of at home depending upon family needs and may need to be placed in a retirement with hospice there. Thank you for your confidence in this consultation.
[2018-04-14 08:56] LABS: VITAMIN B12 LEVEL > 2000 PG/ML (232-1245)
[2018-04-14] MEDS: FERROUS SULFATE 325MG TAB PO SCH (09:19)
[2018-04-14] MEDS: MULTIVITAMINS/MINERALS THERAP 1 TAB PO SCH (09:19)
[2018-04-14] MEDS: POTASSIUM CHLORIDE 10 MEQ SR TABLET PO SCH ×2 (11:09→21:25)
--- NOTE | 2018-04-14 12:58 | IPN ---
DATE: 04/14/2018 Julieta is seen [facility]. Her calcium is now back to normal. She is trying to get some physical therapy. She was seen by Dr. Calix. I appreciate her consultation. Per Dr. Calix's report, the patient is unlikely to receive any chemotherapy and palliative measures including hospice should be considered. When I asked the patient about her visit with Dr. Calix she indicates that they plan further chemotherapy and that she is going to "take things as they come in." So, obviously there is a disconnect going on there. PHYSICAL EXAMINATION: 107/54, pulse of 80, respiratory rate 15, 94% oxygen saturation on room air. General appearance: Elderly, frail, resting comfortably. Alert and conversant. HEENT: Unremarkable. No jugular venous distention (JVD). Lungs clear. Heart regular rhythm. Abdomen soft, nontender, no masses. Normal muscle strength. LABS: Potassium 3.1, calcium 9.4. CBC hemoglobin is down to 10.7 after hydration. I think that is now probably at her baseline. Lumbar spine films did not show any bony metastases there. IMPRESSION: Hypercalcemia secondary to malignancy. She has received IV Zometa 4 mg daily, hydration and some calcitonin. Her calcium is now normal. I have ordered some supplemental potassium for her. She is getting physical therapy. We have stopped her IV fluids. She would probably be ready for discharge or SNF level today. There is a disconnect between the patient's understanding of the plan as expressed by Dr. Calix's note. Will ask oncology reconcile this.
[2018-04-14 14:00] VITALS: BP 129/63
[2018-04-14] MEDS: LATANOPROST 0.005% OPHTH SOLN 2.5 ML OD SCH (21:25)
[2018-04-14] MEDS: FENOFIBRATE 145 MG TAB (TRICOR) PO SCH (21:25)
[2018-04-14 22:00] VITALS: BP 100/53
[2018-04-15 00:09] LABS: VITAMIN D 1,25 DIHYDROXY 30.9 pg/mL (19.9-79.3)
[2018-04-15] MEDS: HEPARIN SOD (PORCINE) 5000 UNITS/ML VIAL SQ SCH ×3 (05:36→21:08)
[2018-04-15 06:45] LABS: HEMATOCRIT 38.4 % (36.0-47.0); HEMOGLOBIN 12.1 g/dl (12.0-15.5); MEAN CORPUSCULAR HGB CONC 31.5 g/dl (32.0-36.5); MEAN CORPUSCULAR VOLUME 82.4 fl (80.0-96.0); PLATELET COUNT, AUTOMATED 212 10^3/uL (150-450); RED BLOOD COUNT 4.66 10^6/uL (4.00-5.40); WHITE BLOOD COUNT 8.1 10^3/uL (4.0-10.0)
[2018-04-15 07:13] LABS: BLOOD UREA NITROGEN 16 MG/DL (7-18); CALCIUM LEVEL 9.3 MG/DL (8.8-10.2); CARBON DIOXIDE LEVEL 22 MEQ/L (21-32); CHLORIDE LEVEL 112 MEQ/L (98-107); GLOMERULAR FILTRATION RATE > 60.0 (>39); GLUCOSE, FASTING 88 MG/DL (70-100); SODIUM LEVEL 142 MEQ/L (136-145)
[2018-04-15] MEDS: FERROUS SULFATE 325MG TAB PO SCH (08:32)
[2018-04-15] MEDS: MULTIVITAMINS/MINERALS THERAP 1 TAB PO SCH (08:33)
[2018-04-15] MEDS: POTASSIUM CHLORIDE 10 MEQ SR TABLET PO SCH ×2 (08:33→21:08)
--- NOTE | 2018-04-15 10:56 | DSES ---
DATE OF ADMISSION: 04/13/2018 DATE OF DISCHARGE: PRIMARY CARE PROVIDER: Dr. Dequan Dobbins. ENGRAVER BLOCK: Dr. Liya Calix. PRINCIPAL DIAGNOSIS: Severe hypercalcemia secondary to metastatic squamous cell carcinoma stage IV uterine cancer. HISTORY: Julieta Delacruz was admitted to the hospitalist service with severe hypercalcemia. Details in the history and physical on admission. HOSPITAL COURSE: Patient was admitted to a medical bed, re-hydrated with saline, given calcitonin with some mild reduction of her calcium from 14.1 to 10. She then was given a dose of Zometa 4 mg IV. Calcium normalized and has remained normal for the rest of her hospitalization. Her strength improved during her stay and per physical therapy, she is cleared to be discharged home. She was seen by Dr. Calix, her oncologist, who knows her stage IV endometrial cancer is grossly metastatic, unlikely to receive anymore chemotherapy. Palliative measures including hospice could be pursued as an outpatient. (I would note that the patient's take on the conversation was not congruent with Dr. Calix's note and the patient is under the belief that she is still a candidate for chemotherapy and plans to "take her cancer one step at a time". I did impress upon her during this hospitalization that she is unlikely to be a candidate for further treatment. Significant labs to date: Sodium 142, potassium 4.0, BUN 16, creatinine 0.8, calcium 9.3. Free T4, TSH normal. Vitamin D level 80. PTH intact, molecule 12.9 consistent with malignancy. White count 8.1, hemoglobin 12.1, platelets 211. She had a number of other tests ordered to work up her hypercalcemia, but I cancelled those as it was obviously related to her metastatic cancer. DISPOSITION: The patient is discharged home in improved and stable condition. She will be staying with a sister. She will followup with her primary care provider, Dr. Dequan Dobbins in a week. Her activities are as tolerated using a rolling walker. She will also followup with Dr. Calix per her office. She is on a regular diet. She will need a followup calcium level as an outpatient. This will need to be followed periodically as well. She will stop the supplemental calcium she was taking as an outpatient. Continue with fenofibrate 145 mg nightly, ferrous sulfate 325 mg daily, multivitamin and eye drops. Consideration given to stopping the iron and the fenofibrate based on an poor prognosis and limited life expectancy. A decision will be deferred to Dr. Dobbins. Prognosis is poor. Patient, per oncology is not a candidate for further chemotherapy.
[2018-04-15 14:00] VITALS: BP 105/55
[2018-04-15] MEDS: LATANOPROST 0.005% OPHTH SOLN 2.5 ML OD SCH (21:08)
[2018-04-15] MEDS: FENOFIBRATE 145 MG TAB (TRICOR) PO SCH (21:08)
[2018-04-15 22:00] VITALS: BP 117/59
[2018-04-16] MEDS: HEPARIN SOD (PORCINE) 5000 UNITS/ML VIAL SQ SCH ×2 (05:25→13:46)
[2018-04-16 06:00] VITALS: BP 114/62
[2018-04-16] MEDS: POTASSIUM CHLORIDE 10 MEQ SR TABLET PO SCH (08:12)
[2018-04-16] MEDS: FERROUS SULFATE 325MG TAB PO SCH (08:12)
[2018-04-16] MEDS: MULTIVITAMINS/MINERALS THERAP 1 TAB PO SCH (08:12)
[2018-04-19 00:06] LABS: PTH RELATED PEPTIDE 6.8 pmol/L (.)
== END 2018-04-16 13:57 | disposition home health service (06) | DRG 641 ==
LOC: EDSEX 08:54 → EDUNIT# 08:54 → EDBD 08:54 → M ED 08:54 → M ED INP 13:54 → M MSPAV 17:33 → OBSVTOIN 04-13 10:43 → M MSPAV 04-14 13:33
PROVIDERS: ADMIT Internal Medicine; ATTEND Family Medicine
DX: E83.52 Hypercalcemia (principal); N17.9 Acute kidney failure, unspecified; C78.7 Secondary malignant neoplasm of liver and intrahepatic bile duct; C78.00 Secondary malignant neoplasm of unspecified lung; C55 Malignant neoplasm of uterus, part unspecified; E78.5 Hyperlipidemia, unspecified; R29.6 Repeated falls; E86.0 Dehydration; Z79.899 Other long term (current) drug therapy

== ENCOUNTER 2018-05-21 15:23 | Inpatient (IN) | payer MEDICARE ==
[~2018-05-21] VITALS: Ht 165.1 cm; Wt 57.2 kg
[~2018-05-21 15:23] MED LIST changes: +FERR1TAB8 PO
[2018-05-21 16:56] LABS: BASO % 1.9 % (0.0-1.0); EOS % 1.9 % (0.0-3.0); HEMATOCRIT 39.6 % (36.0-47.0); HEMOGLOBIN 12.4 g/dl (12.0-15.5); LYMPH % 20.6 % (24.0-44.0); MEAN CORPUSCULAR HEMOGLOBIN 26.3 pg (27.0-33.0); MEAN CORPUSCULAR HGB CONC 31.3 g/dl (32.0-36.5); MEAN CORPUSCULAR VOLUME 83.9 fl (80.0-96.0); MONO # 0.1 10^3/uL (0.0-0.8); MONO % 8.4 % (0.0-5.0); NEUTROPHILS % 66.3 % (36.0-66.0); RED BLOOD COUNT 4.72 10^6/uL (4.00-5.40)
[2018-05-21 17:09] LABS: CREATININE FOR GFR 1.15 MG/DL (0.55-1.30); GLOMERULAR FILTRATION RATE 48.8 (>39)
[2018-05-21 17:10] LABS: ALBUMIN 2.6 GM/DL (3.2-5.2); BILIRUBIN,DIRECT 0.6 MG/DL (0.0-0.2); CALCIUM LEVEL 12.7 MG/DL (8.8-10.2); TOTAL PROTEIN 6.5 GM/DL (6.4-8.2)
[2018-05-21] MEDS ORDERED: NS 1,000 ML IV ONE (17:15)
[2018-05-21] MEDS ORDERED: MAGIC MOUTHWASH SUSPENSION BTL SS PRN (17:15)
[2018-05-21] MEDS ORDERED: ONDANSETRON 4MG/2ML VIAL (J2405) IV ONE (17:15)
[2018-05-21 17:16] LABS: LYMPH # 0.2 10^3/uL (1.5-4.5); NEUTROPHILS # 0.7 10^3/uL (1.8-7.7); PLATELET COUNT, AUTOMATED 12 10^3/uL (150-450); WHITE BLOOD COUNT 1.1 10^3/uL (4.0-10.0)
--- NOTE | 2018-05-21 18:27 | REPVR ---
EXAM: CT Abdomen and Pelvis Without Contrast EXAM DATE/TIME: 05/21/2018 5:39 PM CLINICAL HISTORY: 78 years old, female; Signs and symptoms; Nausea and vomiting; Prior surgery; Surgery date: 6+ months; Surgery type: Hysterectomy, d&c; Additional info: Nausea/vomiting TECHNIQUE: Axial computed tomography images of the abdomen and pelvis without contrast. All CT scans at this facility use at least one of these dose optimization techniques: automated exposure control; mA and/or kV adjustment per patient size (includes targeted exams where dose is matched to clinical indication); or iterative reconstruction. Coronal and sagittal reformatted images were created and reviewed. COMPARISON: CT ABD PELVIS WITH CONTRAST 11/24/2017 3:07 PM FINDINGS: Lower thorax: Multiple pulmonary parenchymal nodules measure up to 2 x 3.1 cm. findings consistent with metastatic disease. ABDOMEN: Liver: Extensive necrotic metastatic disease in the liver the largest mass in the right lobe of the liver measuring 9.9 x 6.8 cm. Gallbladder and bile ducts: There has been a cholecystectomy. Pancreas: Normal. No ductal dilation. Spleen: Normal. No splenomegaly. Adrenals: Normal. No mass. Kidneys and ureters: Normal. No hydronephrosis. Stomach and bowel: Normal. No obstruction. No mucosal thickening. Appendix: No evidence of appendicitis. PELVIS: Bladder: Unremarkable as visualized. Reproductive: There has been a hysterectomy. ABDOMEN and PELVIS: Intraperitoneal space: Small amount of free fluid in the cul-de-sac. Bones/joints: Mild central spinal stenosis at L4-5. Soft tissues: Umbilical hernia. Vasculature: The aorta demonstrates moderate atherosclerotic calcification. Lymph nodes: Normal. No enlarged lymph nodes. IMPRESSION: 1. Multiple pulmonary parenchymal nodules measure up to 2 x 3.1 cm. Findings consistent with metastatic disease. 2. Extensive necrotic metastatic disease in the liver the largest mass in the right lobe of the liver measuring 9.9 x 6.8 cm. 3. There has been a cholecystectomy. 4. There has been a hysterectomy. Electronically signed by: Gavino Maldonado On 05/21/2018 18:26:52 PM
--- NOTE | 2018-05-21 18:38 | CR.PDOC ---
General Date of Consultation: May 21, 2018 Consultation REASON FOR CONSULTATION/CHIEF COMPLAINT: patient with neutropenia for treatment with topotecan for stage IV endometrial cancer presented with 4- 5 days of frequent watery diarrhea denies any bleeding from stool but has some bleeding aroune the nare this am now stopped . + nausea now white pancytopenia HISTORY OF PRESENT ILLNESS: [ The patient has failed several lines of chemo for her endometrial cancer and has a PS of 2/4 when started on the TOPOTECAN know n marrow suppressive . ]. ALLERGIES: Please see below. HOME MEDICATIONS: Please see below. PAST MEDICAL HISTORY: 1. . 2. . PAST SURGICAL HISTORY: 1. 2. FAMILY HISTORY: Father: Mother: Siblings: Children: Hereditary Diseases: Unexpected deaths due to medical reasons: SOCIAL HISTORY: Marital status and/or living arrangements: [ sisters supportive ] Children: Employment: Tobacco use:[no ] ETOH: no] Illicit drug use: [no] IV drug use: no Other relevant social factors: REVIEW OF SYSTEMS: CONSTITUTIONAL: [ tired fatigue noted weakness no fever noted HEENT: [NC AT perrl sclera whtie ]. CARDIOVASCULAR: S1 S2 appreciated no murmurs are noted . RESPIRATORY: [ no sob no couhg ]. GENITOURINARY: no dysuria noted . MUSCULOSKELETAL: generalized weakness noted . GASTROINTESTINAL: m,ultipe bouts of frequent watery diarrhea that started 4-5 days ago t ried to take some Pedialyte without any chnage in stool stoppped eating to avoid stimulting her bowels . SKIN: [dry ]. NEUROLOGICAL: no numbness ]. PSYCHIATRIC: [ minimla anxiety ]. ENDOCRINE: [no change ]. HEMATOLOGIC/LYMPHATIC: [ nares with bleeding noted ]. ALLERGIC/IMMUNOLOGIC: . PHYSICAL EXAMINATION: VITAL SIGNS: Please see below. GENERAL APPEARANCE: [ NC at PERR sclera in white non icteric ]. HEENT: [jt clear no signs of any thrush ]. RESPIRATORY: [cleat to A&P]. CARDIOVASCULAR: S1 S2 appreciated RRR rate 96 . ABDOMEN: soft BS hyperactive no ascites or re bound . EXTREMITIES: [ thin no edema no petechia ]. NEUROLOGICAL: intact no foal deficiets . PSYCHIATRIC: intact . LABORATORY DATA: Please see below. ASSESSMENT/PLAN: 1. [Stage IV endometrial cancer Chemotherapy induced diarrhea Chemotherapy induced pancytopenia Chemo related fatigue Dehydration Plan Admit Hydrate symptom management for diarrhea neupogen 300 mcg sc daily intil the ANC is over 5K transfuse one unit of SD platelets Vital Signs/I&O Vital Signs Date Time Temp Pulse Resp B/P (MAP) Pulse Ox O2 Delivery O2 Flow Rate FiO2 05/21/18 15:24 97.9 107 17 108/54 (72) 95 Room Air Laboratory Data Labs 24H Laboratory Tests 2 05/21/18 15:56: Immature Granulocyte % (Auto) 0.9, White Blood Count 1.1L, Red Blood Count 4.72, Hemoglobin 12.4, Hematocrit 39.6, Mean Corpuscular Volume 83.9, Mean Corpuscular Hemoglobin 26.3L, Mean Corpuscular Hemoglobin Concent 31.3L, Red Ce ll Distribution Width 17.2H, Platelet Count 12*L, Neutrophils (%) (Auto) 66.3H, Lymphocytes (%) (Auto) 20.6L, Monocytes (%) (Auto) 8.4H, Eosinophils (%) (Auto) 1.9, Basophils (%) (Auto) 1.9H, Neutrophils # (Auto) 0.7L, Lymphocytes # (Auto) 0.2L, Monocytes # (Auto) 0.1, Eosinophils # (Auto) 0.0, Basophils # (Auto) 0.0, Nucleated Red Blood Cells % (auto) 0.0, Immature Platelet Fraction 7.4, Anion Ga p 13, Glomerular Filtration Rate 48.8, Calcium Level 12.7H, Aspartate Amino Transf (AST/SGOT) 81H, Alanine Aminotransferase (ALT/SGPT) 46, Alkaline Phosphatase 217H, Total Bilirubin 1.0, Direct Bilirubin 0.6H, Total Protein 6.5, Albumin 2.6L, Albumin/Globulin Ratio 0.67L, Lipase 87 CBC/BMP Laboratory Tests 05/21/18 15:56 Red Blood Count 4.72, Mean Corpuscular Volume 83.9, Mean Corpuscular Hemoglobin 26.3 L, Mean Corpuscular Hemoglobin Concent 31.3 L, Red Cell Distribution Width 17.2 H, Neutrophils (%) (Auto) 66.3 H, Lymphocytes (%) (Auto) 20.6 L, Monocytes (%) (Auto) 8.4 H, Eosinophils (%) (Auto) 1.9, Basophils (%) (Auto) 1.9 H, Neutrophils # (Auto) 0.7 L, Lymphocytes # (Auto) 0.2 L, Monocytes # (Auto) 0.1, Eosinophils # (Auto) 0.0, Basophils # (Auto) 0.0 Allergies Coded Allergies: No Known Allergies (Verified , 01/30/06) Home Medications Scheduled (Vision Formula 2) 1 Tab Tab, 1 TAB PO DAILY, (Reported) Fenofibrate (Fenofibrate) 145 Mg Tab, 145 MG PO QHS, (Reported) Ferrous Sulfate (Ferrous Sulfate) 325 Mg Tab, 325 MG PO DAILY, (Reported) Multivitamins *[facility] STOCKED* (Thera M Plus *[facility] STOCKED*) 1 Tab Tab, 1 TAB PO DAILY, (Reported) Travoprost (Travatan Z) 50 Drop/2.5 Ml Soln, 1 DROP OD QHS, (Reported) Liya Calix MD May 21, 2018 18:38
[2018-05-21] MEDS ORDERED: LOMOTIL 2.5MG/0.025MG TABLET PO PRN (18:45)
[2018-05-21 19:33] LABS: BASO % 2.5 % (0.0-1.0); EOS % 2.5 % (0.0-3.0); HEMATOCRIT 35.6 % (36.0-47.0); HEMOGLOBIN 11.3 g/dl (12.0-15.5); MEAN CORPUSCULAR HEMOGLOBIN 26.6 pg (27.0-33.0); MEAN CORPUSCULAR HGB CONC 31.7 g/dl (32.0-36.5); MEAN CORPUSCULAR VOLUME 83.8 fl (80.0-96.0); MONO # 0.1 10^3/uL (0.0-0.8); MONO % 9.9 % (0.0-5.0); NEUTROPHILS % 62.9 % (36.0-66.0); RED BLOOD COUNT 4.25 10^6/uL (4.00-5.40)
[2018-05-21 19:49] LABS: LYMPH # 0.2 10^3/uL (1.5-4.5); NEUTROPHILS # 0.5 10^3/uL (1.8-7.7); PLATELET COUNT, AUTOMATED 7 10^3/uL (150-450); WHITE BLOOD COUNT 0.8 10^3/uL (4.0-10.0)
[2018-05-21] MEDS ORDERED: NS 1,000 ML IV SCH (20:45)
[2018-05-21] MEDS: LATANOPROST 0.005% OPHTH SOLN 2.5 ML OD SCH (21:00)
--- NOTE | 2018-05-21 21:44 | HPE ---
DATE OF ADMISSION: 05/21/2018 CHIEF COMPLAINT: Decreased oral intake, weakness, diarrhea. HISTORY OF PRESENT ILLNESS: This is a 78-year-old female with a past medical history of stage IV endometrial cancer, status post hysterectomy, currently receiving chemotherapy with topotecan, last dose was 05/14/2018, who presents with a chief complaint of a several day history of poor oral intake, dry mouth, significant watery diarrhea, poor appetite, and overall weakness and malaise. The patient reports that she has felt unwell since her last topotecan chemotherapy on 05/14/2018. She denies any fevers. No respiratory symptoms of cough or congestion. EMERGENCY ROOM COURSE: In the emergency room, the patient was noted to be neutropenic, thrombocytopenic, but not febrile. Her oncologist, Dr. Calix, saw her. She was recommended for a platelet transfusion and admission for monitoring. Platelets were ordered and currently pending transfusion. Dr. Calix recommended that she also be admitted for IV hydration. REVIEW OF SYSTEMS: Negative in 14 out of 14 systems except as noted above. PAST MEDICAL HISTORY: 1. Stage IV endometrial cancer. 2. History of hyperlipidemia. PAST SURGICAL HISTORY: 1. History of cholecystectomy. 2. Hysterectomy. MEDICATIONS: The patient's home medications are: - fenofibrate 145 mg daily - ferrous sulfate 325 mg daily - multivitamin one tablet daily - Travoprost one drop OD at night - Vision Formula one tablet by mouth daily ALLERGIES: No known drug allergies. SOCIAL HISTORY: The patient is . She lives with her sister. She has never had any children. No smoking, alcohol, or drugs. FAMILY HISTORY: No family history of cancer. PHYSICAL EXAMINATION: The patient is currently hemodynamically stable, afebrile at 96. Blood pressure 108/74, tachycardic mildly to 107, respiratory rate 17, saturating 95% on room air. GENERAL: She is in no acute distress but very frail and fatigued appearing. HEENT: She has some dried blood in her nostril. Oropharynx is dry. CARDIOVASCULAR: She is slightly tachycardic. No murmurs, rubs or gallops. LUNGS: Clear to auscultation bilaterally. ABDOMEN: Soft, nontender, nondistended. Positive bowel sounds. EXTREMITIES: No clubbing, cyanosis or edema. SKIN: Intact. NEUROLOGIC: She is alert and oriented times three. Follows simple commands. No focal neurologic deficits. PSYCHIATRIC: Mood is stable. LABORATORIES: Reveal a total white count of 0.8, hemoglobin 11.3, platelets of 7. Initially when she came in, her platelets were 12 and her white count was 1.1. Chemistry reveals a creatinine of 1.15, her last creatinine was 0.74. Her BUN is elevated to 90. Her albumin is 2.6. IMAGING: She had a CT of the abdomen and pelvis done, which shows multiple pulmonary parenchymal nodules measuring up to 2 x 3.1 cm, consistent with metastatic disease. She has extensive necrotic metastatic disease in the liver, the largest mass in the right lobe of the liver measuring 9 x 6 cm. ASSESSMENT AND PLAN: This is a 78-year-old female with metastatic endometrial cancer and hyperlipidemia, who presents status post recent chemotherapy with topotecan with poor oral intake, diarrhea, fatigue, found to be neutropenic and thrombocytopenic. 1. Thrombocytopenia. The patient does currently have some bleeding from her nose. Dr. Calix was [employer] consultant and she saw the patient and recommended platelet transfusion. If she continues to bleed, her goal platelets should be greater than 50. If she is not bleeding, typically platelets above 10 is acceptable. It appears her epistaxis has currently stopped. She currently does not need any red cell transfusion. 2. Neutropenia. The patient is neutropenic, however, she is not currently having fevers so no antibiotics are indicated. Should she spike, she will need broad spectrum antibiotics for neutropenic fever coverage. The patient was recommended for one dose of Neupogen times one for the neutropenia. 3. Acute kidney injury. The patient does have acute kidney injury with elevated creatinine from her baseline and quite an elevated BUN. I have placed her on IV fluids, normal saline at 75 mL per hour. This will continue to be monitored. 4. Stage IV endometrial cancer. At this time, it does not appear that she tolerated her last chemotherapy well. Prognosis and further candidacy for chemotherapy to be determined by her oncologist. If prognosis is poor. Should consider palliative care consult and inpatient transition to hospice, if appropriate. 5. Fluids, electrolytes, nutrition (FEN). At this time, the patient has a poor appetite and is requesting a liquid diet only. We will put her on Zofran as needed. 6. Deep vein thrombosis (DVT) prophylaxis. Not indicated at this time. DISPOSITION: Social work consult to facilitate disposition planning. MTDD
[2018-05-22] VITALS (7 sets, daily range): BP systolic 98–117; BP diastolic 56–65
[2018-05-22 01:54] LABS: HEMATOCRIT 30.1 % (36.0-47.0); HEMOGLOBIN 9.6 g/dl (12.0-15.5); MEAN CORPUSCULAR HEMOGLOBIN 26.7 pg (27.0-33.0); MEAN CORPUSCULAR HGB CONC 31.9 g/dl (32.0-36.5); MEAN CORPUSCULAR VOLUME 83.8 fl (80.0-96.0); RED BLOOD COUNT 3.59 10^6/uL (4.00-5.40)
[2018-05-22 02:01] LABS: PLATELET COUNT, AUTOMATED 15 10^3/uL (150-450); WHITE BLOOD COUNT 0.5 10^3/uL (4.0-10.0)
[2018-05-22 02:17] LABS: BLOOD UREA NITROGEN 65 MG/DL (7-18); CALCIUM LEVEL 10.3 MG/DL (8.8-10.2); CARBON DIOXIDE LEVEL 27 MEQ/L (21-32); CHLORIDE LEVEL 109 MEQ/L (98-107); CREATININE FOR GFR 0.82 MG/DL (0.55-1.30); GLOMERULAR FILTRATION RATE > 60.0 (>39); GLUCOSE, FASTING 101 MG/DL (70-100); POTASSIUM SERUM 3.4 MEQ/L (3.5-5.1); SODIUM LEVEL 142 MEQ/L (136-145)
[2018-05-22] MEDS ORDERED: FENOFIBRATE 145 MG TAB (TRICOR) PO SCH (09:00)
[2018-05-22] MEDS ORDERED: MULTIVITAMINS/MINERALS THERAP 1 TAB PO SCH (09:00)
[2018-05-22] MEDS: FERROUS SULFATE 325MG TAB PO SCH (09:24)
[2018-05-22] MEDS: MULTIVITAMINS/MINERALS THERAP 1 TAB PO SCH (09:25)
--- NOTE | 2018-05-22 09:42 | IPN ---
DATE OF SERVICE: 05/22/2018 Julieta is seen in PCU. She was admitted with critical neutropenia and thrombocytopenia secondary to chemotherapy. She also is hypercalcemic. She denies any fever. She had a bit of scant bleeding from the nose today but no luis enrique epistaxis. No rectal bleeding or urinary bleeding. She has not had any recurrence of her diarrhea. PHYSICAL EXAMINATION: 110/56, afebrile. T-max 98 degrees. General appearance: Chronically ill-appearing, on chemotherapy, alopecia but does not look septic. She is alert, conversant, in good spirits. Lungs: Clear. Heart: Regular rate and rhythm. Abdomen: Soft, nontender, no masses. No peripheral edema. No epistaxis. LABS: White count 0.5, differential pending. Hemoglobin 9.6, platelets are 15. Sodium 142. Potassium 3.4, BUN 65, creatinine 0.8. Calcium is down to 10.3. IMPRESSION: 1. Critical neutropenia without fever. Case discussed with her oncologist, Dr. Liya Calix. No antibiotics unless patient spikes a fever or becomes septic. 2. Thrombocytopenia. Transfuse platelets if less than 10. Epistaxis appears to have resolved. 3. Acute kidney injury. Continue IV hydration. 4. Hypercalcemia. This has improved with hydration. Case discussed with her oncologist. Appreciate her assistance.
[2018-05-22] MEDS: FILGRASTIM 300 MCG/0.5 ML SYRINGE (J1442 PER 1MCG) SC SCH (10:15)
[2018-05-22] MEDS: KCL 20MEQ in NS 1000ML 1,000 ML IV SCH ×2 (10:15→23:40)
--- NOTE | 2018-05-22 14:07 | IPNPDOC ---
Date Seen The patient was seen on 05/22/18. Progress Note Hematology Oncology Service Rounds SUBJECTIVE: Patient is a [78]-year-old [[place]uc[place] female with chemotherapy induced neutropenia and diarrhea she has thrombocytopenia as well no fevers last night but up all night with repeat doses of diarrhea no b lood in the stool noted no abdominal pain no epistaxis Her sisters are at the bedside Constituional fatigue weakness insomnia HEENT no dysphagia tast is off REsp no SOB CArdio no palpiations ABdomen multiple episodes of profuse watery diarrhea up all night , several episodes this am no dysuria Ext fatigue no focal loss of funstion Heme no bleeding skin no petechia dry Remainder of the 12 poiint ROS negative OBJECTIVE PHYSICAL EXAMINATION: ECOG 2/4 VITAL SIGNS: Please see below. GENERAL: [pale ] HEENT: sclera white no thrush noted no buccal lesions CARDIOVASCULAR: [S1 S2 appreciated no murmurs ]. RESPIRATORY: clear to A&P . ABDOMINAL: [ no tenderness noted ]+ hyperactive bowel sounds noted EXTREMITIES: [no cce ] NEUROLOGICAL: [intact cranial nerves II- XII intact ] PSYCHOLOGICAL: LABORATORY DATA, IMAGING STUDIES, MICROBIOLOGY: Please see below. Echocardiogram: . DVT prophylaxis ordered?: ASSESSMENT AND PLAN: This is a -year-old [RACE] [GENDER] with . PROBLEMS: 1. : Stage IV endometrial cancer . 2. : .Chemo related diarrhea ( topotecan drug given ) 3. : .Chemo related pancytopenia DISPOSITION: [ Cont IVF Cont Neupogen Cont antidirrheals add SQ Atropine at 0.4 mg x 1 to slow the diarrhea Chekc for C. DIff CBC daily neutropenic and platelet precautions VS, I&O, 24H, Fishbone Vital Signs/I&O Vital Signs Date Time Temp Pulse Resp B/P (MAP) Pulse Ox O2 Delivery O2 Flow Rate FiO2 05/22/18 12:00 97.9 103 18 109/57 (74) 95 05/22/18 00:15 Room Air I&O- Last 24 Hours up to 6 AM 05/22/18 06:00 Intake Total 1420 ml Balance 1420 ml Laboratory Data 24H LABS Laboratory Tests 2 05/21/18 15:56: Immature Granulocyte % (Auto) 0.9, White Blood Count 1.1L, Red Blood Count 4.72, Hemoglobin 12.4, Hematocrit 39.6, Mean Corpuscular Volume 83.9, Mean Corpuscular Hemoglobin 26.3L, Mean Corpuscular Hemoglobin Concent 31.3L, Red Cell Distribution Width 17.2H, Platelet Count 12*L, Neutrophils (%) (Auto) 66.3H, Lymphocytes (%) (Auto) 20.6L, Monocytes (%) (Auto) 8.4H, Eosinophils (%) (Auto) 1.9, Basophils (%) (Auto) 1.9H, Neutrophils # (Auto) 0.7L, Lymphocytes # (Auto) 0.2L, Monocytes # (Auto) 0.1, Eosinophils # (Auto) 0.0, Basophils # (Auto) 0.0, Nucleated Red Blood Cells % (auto) 0.0, Immature Platelet Fraction 7.4, Anion Gap 13, Glomerular Filtration Rate 48.8, Calcium Level 12.7H, As partate Amino Transf (AST/SGOT) 81H, Alanine Aminotransferase (ALT/SGPT) 46, Alkaline Phosphatase 217H, Total Bilirubin 1.0, Direct Bilirubin 0.6H, Total Protein 6.5, Albumin 2.6L, Albumin/Globulin Ratio 0.67L, Lipase 87 05/21/18 19:27: Immature Granulocyte % (Auto) 1.2, White Blood Count 0.8*L, Red Blood Count 4.25, Hemoglobin 11.3L, Hematocrit 35.6L, Mean Corpuscular Volume 83.8, Mean Corpuscular Hemoglobin 26.6L, Mean Corpuscular Hemoglobin Concent 31.7L, Red Cell Distribution Width 17.1H, Platelet Count 7*L, Neutrophils (%) (Auto) 62.9, Lymphocytes (%) (Auto) 21.0L, Monocytes (%) (Auto) 9.9H, Eosinophils (%) (Auto) 2.5, Basophils (%) (Auto) 2.5H, Neutrophils # (Auto) 0.5L, Lymphocytes # (Auto) 0.2L, Monocytes # (Auto) 0.1, Eosinophils # (Auto) 0.0, Basophils # (Auto) 0.0, Nucleated Red Blood Cells % (auto) 0.0 05/22/18 01:48: Nucleated Red Blood Cells % (auto) 0.0, Anion Gap 6L, Glomerular Filtration Rate > 60.0, Calcium Level 10.3#H, Blood Urea Nitrogen 65H, Creatinine 0.82, Sodium Level 142, Potassium Level 3.4L, Chloride Level 109H, Carbon Dioxide Level 27 CBC/BMP Laboratory Tests 05/21/18 15:56 Red Blood Count 4.72, Mean Corpuscular Volume 83.9, Mean Corpuscular Hemoglobin 26.3 L, Mean Corpuscular Hemoglobin Concent 31.3 L, Red Cell Distribution Width 17.2 H, Neutrophils (%) (Auto) 66.3 H, Lymphocytes (%) (Auto) 20.6 L, Monocytes (%) (Auto) 8.4 H, Eosinophils (%) (Auto) 1.9, Basophils (%) (Auto) 1.9 H, Neutr ophils # (Auto) 0.7 L, Lymphocytes # (Auto) 0.2 L, Monocytes # (Auto) 0.1, Eosinophils # (Auto) 0.0, Basophils # (Auto) 0.0 05/21/18 19:27 Red Blood Count 4.25, Mean Corpuscular Volume 83.8, Mean Corpuscular Hemoglobin 26.6 L, Mean Corpuscular Hemoglobin Concent 31.7 L, Red Cell Distribution Width 17.1 H, Neutrophils (%) (Auto) 62.9, Lymphocytes (%) (Auto) 21.0 L, Monocytes ( %) (Auto) 9.9 H, Eosinophils (%) (Auto) 2.5, Basophils (%) (Auto) 2.5 H, Neutrophils # (Auto) 0.5 L, Lymphocytes # (Auto) 0.2 L, Monocytes # (Auto) 0.1, Eosinophils # (Auto) 0.0, Basophils # (Auto) 0.0 05/22/18 01:48 Red Blood Count 3.59 L, Mean Corpuscular Volume 83.8, Mean Corpuscular Hemoglobin 26.7 L, Mean Corpuscular Hemoglobin Concent 31.9 L, Red Cell Distribution Width 17.0 H, Calcium Level 10.3 #H Microbiology Microbiology 05/21/18 Blood Culture, Received Pending Liya Calix MD May 22, 2018 14:05
[2018-05-22] MEDS ORDERED: ATROPINE SULF 0.4 MG/ML 1ML VIAL (J0461) SC ONE (15:00)
[2018-05-22] MEDS: LATANOPROST 0.005% OPHTH SOLN 2.5 ML OD SCH (19:37)
[2018-05-23 04:00] VITALS: BP 108/58
[2018-05-23 05:29] LABS: EOS % 2.3 % (0.0-3.0); HEMATOCRIT 29.4 % (36.0-47.0); HEMOGLOBIN 9.3 g/dl (12.0-15.5); LYMPH % 20.7 % (24.0-44.0); MEAN CORPUSCULAR HEMOGLOBIN 26.1 pg (27.0-33.0); MEAN CORPUSCULAR HGB CONC 31.6 g/dl (32.0-36.5); MEAN CORPUSCULAR VOLUME 82.6 fl (80.0-96.0); MONO # 0.1 10^3/uL (0.0-0.8); MONO % 9.2 % (0.0-5.0); NEUTROPHILS % 66.7 % (36.0-66.0); RED BLOOD COUNT 3.56 10^6/uL (4.00-5.40)
[2018-05-23 05:37] LABS: LYMPH # 0.2 10^3/uL (1.5-4.5); NEUTROPHILS # 0.6 10^3/uL (1.8-7.7); PLATELET COUNT, AUTOMATED 10 10^3/uL (150-450); WHITE BLOOD COUNT 0.9 10^3/uL (4.0-10.0)
[2018-05-23 06:04] LABS: BLOOD UREA NITROGEN 32 MG/DL (7-18); CALCIUM LEVEL 9.9 MG/DL (8.8-10.2); CARBON DIOXIDE LEVEL 25 MEQ/L (21-32); CHLORIDE LEVEL 116 MEQ/L (98-107); CREATININE FOR GFR 0.56 MG/DL (0.55-1.30); GLOMERULAR FILTRATION RATE > 60.0 (>39); GLUCOSE, FASTING 84 MG/DL (70-100); POTASSIUM SERUM 3.9 MEQ/L (3.5-5.1); SODIUM LEVEL 147 MEQ/L (136-145)
[2018-05-23 08:00] VITALS: BP 98/53
[2018-05-23] MEDS: FILGRASTIM 300 MCG/0.5 ML SYRINGE (J1442 PER 1MCG) SC SCH (09:12)
[2018-05-23] MEDS: MULTIVITAMINS/MINERALS THERAP 1 TAB PO SCH (09:12)
[2018-05-23] MEDS: FERROUS SULFATE 325MG TAB PO SCH (09:12)
[2018-05-23] MEDS: KCL 20MEQ in NS 1000ML 1,000 ML IV SCH (11:59)
[2018-05-23 12:00] VITALS: BP 108/59
--- NOTE | 2018-05-23 12:38 | IPNPDOC ---
Date Seen The patient was seen on 05/23/18. HEMATOLOGY ONCOLOGY PROGRESS NOTE Progress Note SUBJECTIVE: Patient is a 78] year old now day 2 of admission for neutropenia ( pancytopenia ) and diarrhea both chemo related she is now hydrated no bleeding but still has marked fatigue and nausea she has not had any diarrhea since this am ( had SC atrop[ine ) given yesterday afternoon PHYSICAL EXAMINATION: VITAL SIGNS: Please see below. GENERAL: weak pale OOB in a chair HEENT: [NC aAT Perrl eomi sclera white non icteric CARDIOVASCULAR: [S1 S2 appreciated no murmurs noted . RESPIRATORY: [ clear to A &P. ABDOMINAL: non tender no HSM EXTREMITIES: [no edema no petechia noted ] NEUROLOGICAL: [no focal deficiet ] PSYCHOLOGICAL: [ intact min depression LABORATORY DATA, IMAGING STUDIES, MICROBIOLOGY: Please see below. Echocardiogram: . DVT prophylaxis ordered?: ASSESSMENT AND PLAN: stage IV endometrial cancer pancytopenia due to chemo fatigue neutropenia thrombocytopenia Plan hold platelet transfusions unless bleeding or falls below 10,000 ( exactly at 10,000 ) [facility] continue the neupogen VS, I&O, 24H, Fishbone Vital Signs/I&O Vital Signs Date Time Temp Pulse Resp B/P (MAP) Pulse Ox O2 Delivery O2 Flow Rate FiO2 05/23/18 04:00 99.0 98 16 108/58 (75) 95 05/22/18 00:15 Room Air I&O- Last 24 Hours up to 6 AM 05/23/18 06:00 Intake Total 2400 ml Balance 2400 ml Laboratory Data 24H LABS Laboratory Tests 2 05/23/18 04:57: Immature Granulocyte % (Auto) 1.1, White Blood Count 0.9*L, Red Blood Count 3.56L, Hemoglobin 9.3L, Hematocrit 29.4L, Mean Corpuscular Volume 82.6, Mean Corpuscular Hemoglobin 26.1L, Mean Corpuscular Hemoglobin Concent 31.6L, Red Cell Distribution Width 17.2H, Platelet Count 10*L, Neutrophils (%) (Auto) 66.7H, Lymphocytes (%) (Auto) 20.7L, Monocytes (%) (Auto) 9.2H, Eosinophils (%) (Auto) 2.3, Basophils (%) (Auto) 0.0, Neutrophils # (Auto) 0.6L, Lymphocytes # (Auto) 0.2L, Monocytes # (Auto) 0.1, Eosinophils # (Auto) 0.0, Basophils # (Auto) 0.0, Nucleated Red Blood Cells % (auto) 0.0, Immature Platelet Fraction 4.5, Anion Gap 6L, Glomerular Filtration Rate > 60.0, Blood Urea Nitrogen 32#H, Creatinine 0.56, Sodium Level 147H, Potassium Level 3.9, Chloride Level 116H, Carbon Dioxide Level 25, Calcium Level 9.9 CBC/BMP Laboratory Tests 05/23/18 04:57 Red Blood Count 3.56 L, Mean Corpuscular Volume 82.6, Mean Corpuscular Hemoglobin 26.1 L, Mean Corpuscular Hemoglobin Concent 31.6 L, Red Cell Distribution Width 17.2 H, Neutrophils (%) (Auto) 66.7 H, Lymphocytes (%) (Auto) 20.7 L, Monocytes (%) (Auto) 9.2 H, Eosinophils (%) (Auto) 2.3, Basophils (%) (Auto) 0.0, Neutrophils # (Auto) 0.6 L, Lymphocytes # (Auto) 0.2 L, Monocytes # (Auto) 0.1, Eosinophils # (Auto) 0.0, Basophils # (Auto) 0.0, Calcium Level 9.9 Microbiology Microbiology 05/23/18 Blood Culture, Received Pending 05/21/18 Blood Culture - Preliminary, Resulted No growth after 24 hours . All specim... Liya Calix MD May 23, 2018 12:38
[2018-05-23] MEDS ORDERED: ACETAMINOPHEN TAB 650MG DOSE (2X325MG) PO ONE (14:00)
[2018-05-23] MEDS ORDERED: diphenhydrAMINE 25 MG CAP PO ONE (14:00)
[2018-05-23] MEDS: ONDANSETRON 4MG/2ML VIAL (J2405) IV PRN (14:03)
[2018-05-23 16:00] VITALS: BP 97/54
[2018-05-23 20:00] VITALS: BP 103/51
[2018-05-23] MEDS: LATANOPROST 0.005% OPHTH SOLN 2.5 ML OD SCH (20:40)
[2018-05-23 23:59] VITALS: BP 102/51
[2018-05-24] MEDS: KCL 20MEQ IN 0.45NS 1000ML 1,000 ML IV SCH ×2 (01:57→14:50)
[2018-05-24 04:00] VITALS: BP 113/61
[2018-05-24 04:58] LABS: BASO % 1.3 % (0.0-1.0); EOS % 1.9 % (0.0-3.0); HEMATOCRIT 30.4 % (36.0-47.0); HEMOGLOBIN 9.4 g/dl (12.0-15.5); LYMPH # 0.3 10^3/uL (1.5-4.5); LYMPH % 16.6 % (24.0-44.0); MEAN CORPUSCULAR HEMOGLOBIN 26.4 pg (27.0-33.0); MEAN CORPUSCULAR HGB CONC 30.9 g/dl (32.0-36.5); MEAN CORPUSCULAR VOLUME 85.4 fl (80.0-96.0); MONO # 0.2 10^3/uL (0.0-0.8); MONO % 9.6 % (0.0-5.0); NEUTROPHILS % 61.7 % (36.0-66.0); RED BLOOD COUNT 3.56 10^6/uL (4.00-5.40)
[2018-05-24 05:21] LABS: BLOOD UREA NITROGEN 20 MG/DL (7-18); CALCIUM LEVEL 9.1 MG/DL (8.8-10.2); CARBON DIOXIDE LEVEL 27 MEQ/L (21-32); CHLORIDE LEVEL 115 MEQ/L (98-107); CREATININE FOR GFR 0.52 MG/DL (0.55-1.30); GLOMERULAR FILTRATION RATE > 60.0 (>39); GLUCOSE, FASTING 89 MG/DL (70-100); SODIUM LEVEL 145 MEQ/L (136-145)
[2018-05-24 05:24] LABS: PLATELET COUNT, AUTOMATED 13 10^3/uL (150-450); WHITE BLOOD COUNT 1.6 10^3/uL (4.0-10.0)
--- NOTE | 2018-05-24 07:26 | IPNPDOC ---
Date Seen The patient was seen on 05/24/18. Progress Note SUBJECTIVE: Patient is still on neutropeniac precautions s/p transfusion for platelet count of 10,000 yesterday no bleeding episodes this am noted or on eves yesterdy no diarrhea the patient is hungry today no abdominal pain noted , dry cough non productive OBJECTIVE PHYSICAL EXAMINATION: VITAL SIGNS: Please see below. GENERAL: [ pale tired fatigued ] HEENT: [ NC AT perrl eomi sclera white ] CARDIOVASCULAR: [s1 s2 appreciated ]. RESPIRATORY: [no SOB no rales rhonci or wheezes noted ]. ABDOMINAL: [ no tenderness rebound ntoed , no guarding ] EXTREMITIES: [no cce NEUROLOGICAL: cranial nerves II- XII intact PSYCHOLOGICAL: [[place] ] LABORATORY DATA, IMAGING STUDIES, MICROBIOLOGY: Please see below. Echocardiogram: . DVT prophylaxis ordered?: ASSESSMENT AND PLAN: Chemo induced neutropenia and diarrhea diarrhea now resolved general fatigue and wekaness noted DISPOSITION: advance the diet OOB maintain neutropenic precautions maintain neupogen assess the patient's ability to be able to eat and keep down a meal No platelet transfusions advised . VS, I&O, 24H, Fishbone Vital Signs/I&O Vital Signs Date Time Temp Pulse Resp B/P (MAP) Pulse Ox O2 Delivery O2 Flow Rate FiO2 05/24/18 04:00 97.7 92 20 113/61 (78) 94 05/22/18 00:15 Room Air I&O- Last 24 Hours up to 6 AM 05/24/18 06:00 Intake Total 1975 ml Balance 1975 ml Laboratory Data 24H LABS Laboratory Tests 2 05/24/18 04:46: Immature Granulocyte % (Auto) 8.9H, White Blood Count 1.6L, Red Blood Count 3.56L, Hemoglobin 9.4L, Hematocrit 30.4L, Mean Corpuscular Volume 85.4, Mean Corpuscular Hemoglobin 26.4L, Mean Corpuscular Hemoglobin Concent 30.9L, Red Cell Distribution Width 17.4H, Platelet Count 13*L, Neutrophils (%) (Auto) 61.7, Lymphocytes (%) (Auto) 16.6L, Monocytes (%) (Auto) 9.6H, Eosinophils (%) (Auto) 1.9, Basophils (%) (Auto) 1.3H, Neutrophils # (Auto) 1.0L, Lymphocytes # (Auto) 0.3L, Monocytes # (Auto) 0.2, Eosinophils # (Auto) 0.0, Basophils # (Auto) 0.0, Nucleated Red Blood Cells % (auto) 1.3H, Anion Gap 3L, Glomerular Filtration Rate > 60.0, Blood Urea Nitrogen 20H, Creatinine 0.52L, Sodium Level 145, Potassium Level 4.0, Chloride Level 115H, Carbon Dioxide Level 27, Calcium Level 9.1 CBC/BMP Laboratory Tests 05/24/18 04:46 Red Blood Count 3.56 L, Mean Corpuscular Volume 85.4, Mean Corpuscular Hemoglobin 26.4 L, Mean Corpuscular Hemoglobin Concent 30.9 L, Red Cell Distribution Width 17.4 H, Neutrophils (%) (Auto) 61.7, Lymphocytes (%) (Auto) 16.6 L, Monocytes (%) (Auto) 9.6 H, Eosinophils (%) (Auto) 1.9, Basophils (%) ( Auto) 1.3 H, Neutrophils # (Auto) 1.0 L, Lymphocytes # (Auto) 0.3 L, Monocytes # (Auto) 0.2, Eosinophils # (Auto) 0.0, Basophils # (Auto) 0.0, Calcium Level 9.1 Microbiology Microbiology 05/24/18 Blood Culture, Received Pending 05/23/18 Blood Culture - Preliminary, Resulted No growth after 24 hours . All specim... 05/21/18 Blood Culture - Preliminary, Resulted No Growth after 48 hours. All Specime... Liya Calix MD May 24, 2018 07:26
[2018-05-24 08:00] VITALS: BP 118/60
[2018-05-24] MEDS: FERROUS SULFATE 325MG TAB PO SCH (08:49)
[2018-05-24] MEDS: MULTIVITAMINS/MINERALS THERAP 1 TAB PO SCH (08:49)
--- NOTE | 2018-05-24 09:40 | IPN ---
DATE: 05/23/2017 She was admitted with critical neutropenia and thrombocytopenia secondary to chemotherapy. She was also hypocalcemic. She had an epistaxis on the . She has not had any recurrence. No rectal bleeding. No urinary bleeding. No hematemesis. PHYSICAL EXAMINATION: Blood pressure 108/59. Pulse 98. Respirations 18. Temperature 98.2 Oxygen saturation 95%. The patient is alert and oriented times three. Pharynx, tongue and gums pink and moist. Nose midline. Chest is clear to auscultation without wheezes or retractions. Heart is regular. Abdomen benign. Bowel sounds positive. and rectal not done. Extremities show no cyanosis, clubbing or edema. Peripheral pulses nonpalpable bilaterally. LABORATORY STUDIES: White count up slightly at 0.9, hemoglobin 9.3, hematocrit 29.4, and platelets are down at 10. Sodium 137, potassium 3.9. Chloride 116, CO2 25, BUN improved to 32, creatinine 0.56. Calcium is improved to 9.7. IMPRESSION: 1. (inaudible) fever. (inaudible) today. Will continue no antibiotics unless she spikes fever or becomes septic. 2. Thrombocytopenia. Dr. Calix states that she is going to order platelets so they are on hand if she decides to transfuse the patient. (inaudible) are improving on IV hydration. 3. Hypercalcemia, improved with hydration. 4. Sodium is 174, which is the highest normal setting. Repeat labs in a.m.
--- NOTE | 2018-05-24 10:09 | IPN ---
DATE: 05/24/2018 Julieta is seen in PCU. I discussed the case with Dr. Calix this morning. She is admitted with critical neutropenia with low grade fever and critical thrombocytopenia secondary to chemotherapy. Her hypercalcemia is resolved. She received platelet transfusions yesterday for a platelet count less than 10,000 and platelets are adequate today. Her absolute neutrophil count has climbed today for the first time above critical level. PHYSICAL EXAMINATION: Afebrile. No fever over the last four days. 118/60. General appearance: She looks a little brighter. Lungs clear. Heart regular rhythm. Abdomen soft, nontender. No cellulitic rashes. No warmth, redness or swelling of extremities. LABS: White count is 1.6 with 60% neutrophils for an ANC of almost 1000. Hemoglobin is 9.4, platelets are 13, sodium 145, potassium 4, BUN 20, creatinine 0.5. IMPRESSION: 1. Critical neutropenia. She is afebrile, still neutropenic precautions. ANC is almost 1000. She is not on antibiotics as she has not had any fevers. 2. Thrombocytopenia. Transfuse platelets for platelet count less than 10,000. 3. Hypercalcemia. This resolved. 4. Diarrhea. This has resolved. Duration of hospitalization will depend on whether her platelet count remains satisfactory. Dr. Calix has been seeing her daily and appreciate her input. Dr. Ashley Cardenas will be assuming her care tomorrow.
[2018-05-24 12:10] VITALS: BP 101/53
[2018-05-24 16:00] VITALS: BP 104/55
[2018-05-24 20:00] VITALS: BP 116/64
[2018-05-24] MEDS: LATANOPROST 0.005% OPHTH SOLN 2.5 ML OD SCH (20:39)
[2018-05-25] VITALS (8 sets, daily range): BP systolic 90–114; BP diastolic 52–62
[2018-05-25] MEDS: KCL 20MEQ IN 0.45NS 1000ML 1,000 ML IV SCH ×2 (02:30→16:20)
[2018-05-25 06:18] LABS: HEMATOCRIT 30.1 % (36.0-47.0); HEMOGLOBIN 9.6 g/dl (12.0-15.5); MEAN CORPUSCULAR HEMOGLOBIN 26.7 pg (27.0-33.0); MEAN CORPUSCULAR HGB CONC 31.9 g/dl (32.0-36.5); MEAN CORPUSCULAR VOLUME 83.6 fl (80.0-96.0); WHITE BLOOD COUNT 5.6 10^3/uL (4.0-10.0)
[2018-05-25 06:19] LABS: PLATELET COUNT, AUTOMATED 21 10^3/uL (150-450)
[2018-05-25 06:37] LABS: BLOOD UREA NITROGEN 15 MG/DL (7-18); CALCIUM LEVEL 9.1 MG/DL (8.8-10.2); CARBON DIOXIDE LEVEL 25 MEQ/L (21-32); CHLORIDE LEVEL 107 MEQ/L (98-107); CREATININE FOR GFR 0.46 MG/DL (0.55-1.30); GLOMERULAR FILTRATION RATE > 60.0 (>39); GLUCOSE, FASTING 84 MG/DL (70-100); POTASSIUM SERUM 4.8 MEQ/L (3.5-5.1); SODIUM LEVEL 136 MEQ/L (136-145)
[2018-05-25 07:12] LABS: ATYPICAL LYMPH 1 % (0-5); EOSINOPHILS 2 % (0-5); LYMPHOCYTES 10 % (16-52); METAMYELOCYTES 2 % (0-0); MONOCYTES 5 % (0-8); NEUTROPHILS 79 % (35-75); PLATELET ESTIMATE MARKED DECREASE (NORMAL)
[2018-05-25 07:13] LABS: ANISOCYTOSIS 1+; TOXIC GRANULATION 1+; TOXIC VACUOLATION 1+
[2018-05-25 07:14] LABS: DOHLE BODIES 2+; HYPOCHROMASIA 1+
--- NOTE | 2018-05-25 07:46 | IPNPDOC ---
Date Seen The patient was seen on 05/25/18. Progress Note Hematology Oncology Service note the patient had a low residue diet started yesterday ate very little but retained it no diarrhea noted yesterday at all still weak had a non produtive cough last night present on admission no abdominal pain noted +PhySICAL EXAMINATION: VITAL SIGNS: Please see below. GENERAL: [ pallor weak ECOG 2-3/4 ] HEENT: [NC AT perrl eomi sclera is white non icteric jt- no thrush noted ] CARDIOVASCULAR: [s1 s2 appreciated no murmurs noted intact]. RESPIRATORY: [ no SOB no rales rhonci or wheezes noted ]. ABDOMINAL: [ softr non tender no masses or lesions noted intact glob oid ] EXTREMITIES: no edema no petechia ntoed NEUROLOGICAL: [ II- XII intact no focal deficiets ] PSYCHOLOGICAL: [ more alert ] LABORATORY DATA, IMAGING STUDIES, MICROBIOLOGY: Please see below. Echocardiogram: . DVT prophylaxis ordered?: [no thrombocytopenia present ] Stage IV endometrial cancer neutropenia resolving diarrhea resolving generalized weakness apetite fair DISPOSITION: OPT PT evaluation and assessment discharge planning for home vs rehab chekc the ANC count todya on the WBC and if it is 1500 , then DC neutropenic precautions VS, I&O, 24H, Fishbone Vital Signs/I&O Vital Signs Date Time Temp Pulse Resp B/P (MAP) Pulse Ox O2 Delivery O2 Flow Rate FiO2 05/25/18 04:00 98.2 77 18 101/53 (69) 94 05/22/18 00:15 Room Air I&O- Last 24 Hours up to 6 AM 05/25/18 06:00 Intake Total 1995 ml Output Total 0 ml Balance 1995 ml Laboratory Data 24H LABS Laboratory Tests 2 05/25/18 05:30: Immature Granulocyte % (Auto) , Nucleated Red Blood Cells % (auto) 0.9H, Neutrophils 79H, Band Neutrophils 1, Lymphocytes (Manual) 10L, Monocytes (Manual) 5, Eosinophils (Manual) 2, Metamyelocytes 2H, Atypical Lymphocytes 1, Toxic Granulation 1+, Toxic Vacuolation 1+, Dohle Bodies 2+, Platelet Estimate MARKED DECREASE, Immature Platelet Fraction 9.8H, Hypochromasia 1+, Anisocytosis 1+, Anion Gap 4L, Glomerular Filtration Rate > 60.0, Blood Urea Nitrogen 15, Creatinine 0.46L, Sodium Level 136#, Potassium Level 4.8, Chloride Level 107, Carbon Dioxide Level 25, Calcium Level 9.1 CBC/BMP Laboratory Tests 05/25/18 05:30 Red Blood Count 3.60 L, Mean Corpuscular Volume 83.6, Mean Corpuscular Hemoglobin 26.7 L, Mean Corpuscular Hemoglobin Concent 31.9 L, Red Cell Distribution Width 17.4 H, Calcium Level 9.1 Microbiology Microbiology 05/24/18 Blood Culture - Preliminary, Resulted No growth after 24 hours . All specim... 05/23/18 Blood Culture - Preliminary, Resulted No Growth after 48 hours. All Specime... 05/21/18 Blood Culture - Preliminary, Resulted No Growth after 72 hours. All specime... Liya Calix MD May 25, 2018 07:46
[2018-05-25] MEDS: FILGRASTIM 300 MCG/0.5 ML SYRINGE (J1442 PER 1MCG) SC SCH ×2 (09:00→10:41)
[2018-05-25] MEDS: FERROUS SULFATE 325MG TAB PO SCH (10:40)
[2018-05-25] MEDS: MULTIVITAMINS/MINERALS THERAP 1 TAB PO SCH (10:41)
[2018-05-25] MEDS: ONDANSETRON 4MG/2ML VIAL (J2405) IV PRN ×2 (13:51→18:48)
--- NOTE | 2018-05-25 16:42 | IPN ---
DATE: 05/25/2018 SUBJECTIVE: The patient is seen and examined in the room today. The patient stated she is not feeling well. She is complaining about acute onset of the right shoulder and scapula pain. The patient denies any trauma. Never had a similar pain in the past. OBJECTIVE: VITAL SIGNS: Temperature is 98.9, pulse 104, respiratory rate 22, blood pressure is 110/59, pulse oximetry is 96% in room air. GENERAL: Mild distress secondary to acute right shoulder pain, fatigued, alert and awake. HEENT: Normocephalic, atraumatic. Extraocular motor grossly intact. CARDIOVASCULAR: Tachycardia. Positive S1, S2. LUNGS: Clear to auscultation bilaterally. ABDOMEN: Soft, nontender, nondistended. Bowel sounds present. EXTREMITIES: No edema. LABORATORY DATA: WBC is 5.6, hemoglobin 9.6, hematocrit 30.1, platelet count is 21. Sodium is 136, potassium 4.8, chloride 107, carbon dioxide 25, BUN 15, creatinine 0.46, GFR is greater than 60, fasting glucose is 84, calcium is 9.1. ASSESSMENT AND PLAN: 1. Stage IV endometrial cancer. Oncologist, Dr. Calix, consulted. The patient has had pancytopenia, suspect secondary to chemotherapy. 2. Critical neutropenia. Neutropenia is improving. 3. Thrombocytopenia. The patient had a platelet transfusion on 05/21/2018 and 05/23/2018. 4. Acute right shoulder pain. Follow with imaging study. 5. Acute kidney injury, resolved. 6. Deep vein thrombosis (DVT) prophylaxis. The patient has severe thrombocytopenia. The patient will be on thromboembolic-deterrent stockings (TEDS) and compression.
[2018-05-25] MEDS ORDERED: NS 500 ML IV ONE (21:00)
[2018-05-25] MEDS: LATANOPROST 0.005% OPHTH SOLN 2.5 ML OD SCH (21:08)
--- NOTE | 2018-05-25 21:29 | REP ---
CT of the right shoulder without IV contrast: The patient has known endometrial carcinoma with multiple cavitary metastatic lung nodules. Axial images are acquired helical scanning and a reformatted sagittal coronal projections. There is no fracture or dislocation. There are no lytic, blastic or destructive skeletal changes. Mineralization is normal. There are no calcifications. Impression: Negative CT of the right shoulder. However, the patient's known multiple cavitary the static lung nodules are again identified. If symptoms persist or worsen consider radionuclide bone scan and / or MRI. Electronically Signed by Kendall Saunders MD 05/25/2018 09:20 P
[2018-05-26] VITALS (7 sets, daily range): BP systolic 101–131; BP diastolic 51–64
[2018-05-26 06:32] LABS: BLOOD UREA NITROGEN 14 MG/DL (7-18); CALCIUM LEVEL 9.2 MG/DL (8.8-10.2); CARBON DIOXIDE LEVEL 22 MEQ/L (21-32); CHLORIDE LEVEL 106 MEQ/L (98-107); CREATININE FOR GFR 0.52 MG/DL (0.55-1.30); GLOMERULAR FILTRATION RATE > 60.0 (>39); GLUCOSE, FASTING 76 MG/DL (70-100); POTASSIUM SERUM 4.3 MEQ/L (3.5-5.1); SODIUM LEVEL 136 MEQ/L (136-145)
[2018-05-26 06:33] LABS: HEMATOCRIT 29.6 % (36.0-47.0); HEMOGLOBIN 9.5 g/dl (12.0-15.5); MEAN CORPUSCULAR HEMOGLOBIN 26.8 pg (27.0-33.0); MEAN CORPUSCULAR HGB CONC 32.1 g/dl (32.0-36.5); MEAN CORPUSCULAR VOLUME 83.4 fl (80.0-96.0); RED BLOOD COUNT 3.55 10^6/uL (4.00-5.40); WHITE BLOOD COUNT 12.8 10^3/uL (4.0-10.0)
[2018-05-26 06:34] LABS: PLATELET COUNT, AUTOMATED 41 10^3/uL (150-450)
[2018-05-26 07:01] LABS: ANISOCYTOSIS 1+; ATYPICAL LYMPH 1 % (0-5); EOSINOPHILS 1 % (0-5); LYMPHOCYTES 7 % (16-52); METAMYELOCYTES 3 % (0-0); MONOCYTES 10 % (0-8); MYELOCYTES 2 % (0-0); NEUTROPHILS 73 % (35-75); PLATELET ESTIMATE MARKED DECREASE (NORMAL)
[2018-05-26 07:02] LABS: TOXIC GRANULATION 2+
[2018-05-26 07:03] LABS: DOHLE BODIES 2+; HYPOCHROMASIA 1+
--- NOTE | 2018-05-26 08:13 | IPNPDOC ---
Date Seen The patient was seen on 05/26/18. Progress Note SUBJECTIVE: The patient is OOB with PT an to the bathroom with nursing still weak + cough She states that she vomited her lunch but was able to retain her dinner eating breakfast this am no fevers no pain no bowel movement OBJECTIVE PHYSICAL EXAMINATION: VITAL SIGNS: Please see below. GENERAL: [ tired nauseated yesterday ] HEENT: NC AT perrl eomi sclera white jt clear to A& P CARDIOVASCULAR: S1 S2 appreciated no murmurs . RESPIRATORY: clear decreaed BS at the bases + cough . ABDOMINAL: [soft no distention ] EXTREMITIES: [no cce ] NEUROLOGICAL: [intact ] PSYCHOLOGICAL: LABORATORY DATA, IMAGING STUDIES, MICROBIOLOGY: Please see below. Echocardiogram: . DVT prophylaxis ordered?: ASSESSMENT AND PLAN: This is a -year-old [RACE] [GENDER] with . PROBLEMS: 1. : [neutroppenia resoved diarrhea resolved now with emesis yesterday non productive cough generalized weakess needs help with ambulation stage IV endometrial cancer ]. Plan OT PT evauation monitor for further nausea no physical signs of bowel obstruciton needs resp PT Ok with heme for rehab dc not be ready to be alone at home VS, I&O, 24H, Fishbone Vital Signs/I&O Vital Signs Date Time Temp Pulse Resp B/P (MAP) Pulse Ox O2 Delivery O2 Flow Rate FiO2 05/26/18 04:00 98.0 99 19 109/56 (73) 95 05/22/18 00:15 Room Air I&O- Last 24 Hours up to 6 AM 05/26/18 06:00 Intake Total 1140 ml Output Total 450 ml Balance 690 ml Laboratory Data 24H LABS Laboratory Tests 2 05/26/18 04:02: Urine Color YELLOW, Urine Appearance HAZY, Urine pH 5.0, Urine Specific Rose 1.008, Urine Protein NEGATIVE, Urine Glucose (UA) NEGATIVE, Urine Ketones NEGATIVE, Urine Blood 2+H, Urine Nitrite NEGATIVE, Urine Bilirubin NEGATIVE, Urine Urobilinogen 0.2, Urine Leukocyte Esterase 3+H, Urine WBC (Auto) 31H, Urine RBC (Auto) 3, Urine Hyaline Casts (Auto) 0, Urine Bacteria (Auto) NEGATIV E, Urine Squamous Epithelial Cells 0, Urine Mucus (Auto) SMALL, Urine Sperm (Auto) 05/26/18 05:35: Immature Granulocyte % (Auto) , Nucleated Red Blood Cells % (auto) 0.9H, Neutro phils 73, Band Neutrophils 3, Lymphocytes (Manual) 7L, Monocytes (Manual) 10H, Eosinophils (Manual) 1, Metamyelocytes 3H, Myelocytes 2H, Atypical Lymphocytes 1, Toxic Granulation 2+, Dohle Bodies 2+, Platelet Estimate MARKED DECREASE, Immature Platelet Fraction 9.5, Hypochromasia 1+, Anisocytosis 1+, Anion Gap 8, Glomerular Filtration Rate > 60.0, Blood Urea Nitrogen 14, Creatinine 0.52L, Sodium Level 136, Potassium Level 4.3, Chloride Level 106, Carbon Dioxide Level 22, Calcium Level 9.2 CBC/BMP Laboratory Tests 05/26/18 05:35 Red Blood Count 3.55 L, Mean Corpuscular Volume 83.4, Mean Corpuscular Hemoglobin 26.8 L, Mean Corpuscular Hemoglobin Concent 32.1, Red Cell Dis tribution Width 17.7 H, Calcium Level 9.2 Microbiology Microbiology 05/24/18 Blood Culture - Preliminary, Resulted No Growth after 48 hours. All Specime... 05/23/18 Blood Culture - Preliminary, Resulted No Growth after 72 hours. All specime... 05/21/18 Blood Culture - Preliminary, Resulted No Growth after 72 hours. All specime... 05/26/18 Urine Culture, Received Pending Liya Calix MD May 26, 2018 08:13
--- NOTE | 2018-05-26 08:21 | REP ---
AP PORTABLE CHEST: 05/25/2018 COMPARISON: PA lateral chest 04/12/2018. CLINICAL HISTORY: Neutropenic. Metastatic malignancy. FINDINGS: Upright portable chest shows the lungs hypoinflated compared to previous study. There are multiple parenchymal nodules bilaterally consistent with a known metastatic disease. The largest on the left is a 4.5 x 3.3 cm, unchanged. I do not see a definite pleural effusion or dense consolidation. The posterior lower lung zones cannot be evaluated on this hypoinflated portable chest. Heart size not enlarged. Aorta is without gross aneurysm, unchanged. Airway intact. Bones with some degenerative changes. No free air under the diaphragm. IMPRESSION: 1. Hypoinflated chest with bilateral metastatic lung nodules and without definite dense consolidation or effusion. Electronically Signed by John Gallagher MD 05/26/2018 09:43 P
[2018-05-26] MEDS: FERROUS SULFATE 325MG TAB PO SCH (09:57)
[2018-05-26] MEDS: MULTIVITAMINS/MINERALS THERAP 1 TAB PO SCH (09:57)
[2018-05-26] MEDS: ONDANSETRON 4MG/2ML VIAL (J2405) IV PRN ×2 (12:58→18:41)
--- NOTE | 2018-05-26 18:06 | IPNPDOC ---
Text Note Date of Service The patient was seen on 05/26/18. NOTE SUBJECTIVE: The patient is seen and examined in the room today. The patient stated she is very weak. Patient also complains about nausea. Her right shoulder pain resolved. Last night patient had hypotension. Fluid bolus was given. OBJECTIVE: VITAL SIGNS: Listed below. GENERAL: fatigued, alert and awake. HEENT: Normocephalic, atraumatic. Extraocular motor grossly intact. CARDIOVASCULAR: Tachycardia. Positive S1, S2. LUNGS: Clear to auscultation bilaterally. ABDOMEN: Soft, nontender, nondistended. Bowel sounds present. EXTREMITIES: No edema. LABORATORY DATA: Listed below. ASSESSMENT AND PLAN: #. Stage IV endometrial cancer. - Oncologist, Dr. Calix, consulted. The patient has had pancytopenia, suspect secondary to chemotherapy. - Patient is currently deconditioned. Continue physical therapy and occupational therapy. #. Critical neutropenia. Neutropenia is improving. #. Thrombocytopenia. - The patient had a platelet transfusion on 05/21/2018 and 05/23/2018. #. Acute right shoulder pain. Follow with imaging study. #. Acute kidney injury, resolved. #. Deep vein thrombosis (DVT) prophylaxis. - The patient has severe thrombocytopenia. The patient will be on thromboembolic-deterrent stockings (TEDS) and compression. VS,Fishbone, I+O VS, Fishbone, I+O Laboratory Tests 05/26/18 05:35 Red Blood Count 3.55 L, Mean Corpuscular Volume 83.4, Mean Corpuscular Hemoglobin 26.8 L, Mean Corpuscular Hemoglobin Concent 32.1, Red Cell Distribution Width 17.7 H, Calcium Level 9.2 Vital Signs Date Time Temp Pulse Resp B/P (MAP) Pulse Ox O2 Delivery O2 Flow Rate FiO2 05/26/18 12:00 98.6 100 18 107/55 (61) 94 05/22/18 00:15 Room Air I&O- Last 24 Hours up to 6 AM 05/26/18 06:00 Intake Total 1140 ml Output Total 450 ml Balance 690 ml SHANTA SEXTON DO May 26, 2018 18:06
[2018-05-26] MEDS: ACETAMINOPHEN TAB 650MG DOSE (2X325MG) PO PRN (18:16)
[2018-05-26] MEDS: NS 1,000 ML IV SCH (18:47)
[2018-05-26] MEDS: LATANOPROST 0.005% OPHTH SOLN 2.5 ML OD SCH (20:28)
[2018-05-27] MEDS: NS 1,000 ML IV SCH ×3 (03:47→23:19)
[2018-05-27 04:00] VITALS: BP 111/54
[2018-05-27 05:22] LABS: HEMATOCRIT 28.3 % (36.0-47.0); HEMOGLOBIN 9.2 g/dl (12.0-15.5); MEAN CORPUSCULAR HEMOGLOBIN 27.1 pg (27.0-33.0); MEAN CORPUSCULAR HGB CONC 32.5 g/dl (32.0-36.5); MEAN CORPUSCULAR VOLUME 83.2 fl (80.0-96.0); WHITE BLOOD COUNT 17.1 10^3/uL (4.0-10.0)
[2018-05-27 05:28] LABS: PLATELET COUNT, AUTOMATED 89 10^3/uL (150-450)
[2018-05-27 05:47] LABS: BLOOD UREA NITROGEN 14 MG/DL (7-18); CALCIUM LEVEL 8.8 MG/DL (8.8-10.2); CARBON DIOXIDE LEVEL 25 MEQ/L (21-32); CHLORIDE LEVEL 108 MEQ/L (98-107); CREATININE FOR GFR 0.54 MG/DL (0.55-1.30); GLOMERULAR FILTRATION RATE > 60.0 (>39); GLUCOSE, FASTING 89 MG/DL (70-100); PREALBUMIN 4.9 MG/DL (20.0-40.0); SODIUM LEVEL 138 MEQ/L (136-145)
[2018-05-27 05:54] LABS: ANISOCYTOSIS 1+; ATYPICAL LYMPH 4 % (0-5); LYMPHOCYTES 5 % (16-52); METAMYELOCYTES 3 % (0-0); MONOCYTES 7 % (0-8); MYELOCYTES 3 % (0-0); NEUTROPHILS 76 % (35-75)
[2018-05-27 05:55] LABS: DOHLE BODIES 2+
[2018-05-27 05:56] LABS: TOXIC GRANULATION 1+
[2018-05-27 08:00] VITALS: BP 117/64
[2018-05-27] MEDS: MULTIVITAMINS/MINERALS THERAP 1 TAB PO SCH (08:26)
[2018-05-27] MEDS: FERROUS SULFATE 325MG TAB PO SCH (08:27)
[2018-05-27 10:48] LABS: PLATELET ESTIMATE DECREASED (NORMAL)
[2018-05-27 12:00] VITALS: BP 114/57
[2018-05-27] MEDS: ENOXAPARIN 40 MG/0.4 ML SYRINGE (J1650) SC SCH (12:06)
[2018-05-27 16:00] VITALS: BP 110/56
--- NOTE | 2018-05-27 19:24 | IPNPDOC ---
Text Note Date of Service The patient was seen on 05/27/18. NOTE SUBJECTIVE: The patient is seen and examined in the room today. Patient had nausea and vomiting yesterday afternnon/night resulted in poor oral intake. Denies urinary frequency, urgency or hematuria. OBJECTIVE: VITAL SIGNS: Listed below. GENERAL: fatigued, alert and awake. HEENT: Positive temporal wasting. Normocephalic, atraumatic. Extraocular motor grossly intact. CARDIOVASCULAR: Tachycardia. Positive S1, S2. LUNGS: Clear to auscultation bilaterally. ABDOMEN: Soft, nontender, nondistended. Bowel sounds present. EXTREMITIES: No edema. LABORATORY DATA: Listed below. ASSESSMENT AND PLAN: #. Stage IV endometrial cancer. - The patient has had pancytopenia, suspect secondary to chemotherapy. - Patient is currently deconditioned. Continue physical therapy and occupational therapy. - Oncologist, Dr. Calix, consulted. Palliative care service contacted. Poor overall prognosis. #. Critical neutropenia. Neutropenia is improving. # Severe protein caloric malnutrition. - Ensure supplement as tolerated. - Dietary consult. #. Thrombocytopenia. - The patient had a platelet transfusion on 05/21/2018 and 05/23/2018. #. Acute kidney injury, resolved. #. Deep vein thrombosis (DVT) prophylaxis. - The patient has severe thrombocytopenia. The patient will be on thromboembolic-deterrent stockings (TEDS) and compression. VS,Fishbone, I+O VS, Fishbone, I+O Laboratory Tests 05/27/18 05:08 Red Blood Count 3.40 L, Mean Corpuscular Volume 83.2, Mean Corpuscular Hemoglobin 27.1, Mean Corpuscular Hemoglobin Concent 32.5, Red Cell Distribution Width 17.9 H, Calcium Level 8.8 Vital Signs Date Time Temp Pulse Resp B/P (MAP) Pulse Ox O2 Delivery O2 Flow Rate FiO2 05/27/18 16:00 99.0 103 20 110/56 (74) 95 05/22/18 00:15 Room Air I&O- Last 24 Hours up to 6 AM 05/27/18 06:00 Intake Total 1600 ml Output Total 1025 ml Balance 575 ml SHANTA SEXTON DO May 27, 2018 19:24
[2018-05-27 20:00] VITALS: BP 107/57
[2018-05-27] MEDS: LATANOPROST 0.005% OPHTH SOLN 2.5 ML OD SCH (20:02)
[2018-05-27 23:29] VITALS: BP 108/56
[2018-05-28 04:23] VITALS: BP 117/57
[2018-05-28 05:34] LABS: HEMATOCRIT 27.6 % (36.0-47.0); HEMOGLOBIN 8.7 g/dl (12.0-15.5); MEAN CORPUSCULAR HEMOGLOBIN 26.1 pg (27.0-33.0); MEAN CORPUSCULAR HGB CONC 31.5 g/dl (32.0-36.5); MEAN CORPUSCULAR VOLUME 82.9 fl (80.0-96.0); PLATELET COUNT, AUTOMATED 153 10^3/uL (150-450); RED BLOOD COUNT 3.33 10^6/uL (4.00-5.40); WHITE BLOOD COUNT 18.9 10^3/uL (4.0-10.0)
[2018-05-28 05:54] LABS: ALBUMIN 1.5 GM/DL (3.2-5.2); ALT/SGPT 26 U/L (12-78); BILIRUBIN,DIRECT 0.2 MG/DL (0.0-0.2); BILIRUBIN,TOTAL 0.5 MG/DL (0.2-1.0); BLOOD UREA NITROGEN 12 MG/DL (7-18); CALCIUM LEVEL 8.3 MG/DL (8.8-10.2); CARBON DIOXIDE LEVEL 23 MEQ/L (21-32); CHLORIDE LEVEL 110 MEQ/L (98-107); CREATININE FOR GFR 0.48 MG/DL (0.55-1.30); GLOMERULAR FILTRATION RATE > 60.0 (>39); GLUCOSE, FASTING 80 MG/DL (70-100); POTASSIUM SERUM 3.7 MEQ/L (3.5-5.1); SODIUM LEVEL 139 MEQ/L (136-145); TOTAL PROTEIN 4.9 GM/DL (6.4-8.2)
[2018-05-28 06:09] LABS: ANISOCYTOSIS 1+; BASOPHILS 1 % (0-4); LYMPHOCYTES 4 % (16-52); METAMYELOCYTES 2 % (0-0); MONOCYTES 5 % (0-8); MYELOCYTES 4 % (0-0); NEUTROPHILS 73 % (35-75); PLATELET ESTIMATE NORMAL (NORMAL); POLYCHROMASIA 1+
[2018-05-28 06:11] LABS: DOHLE BODIES 1+; TOXIC GRANULATION 1+
[2018-05-28 08:00] VITALS: BP 127/56
[2018-05-28] MEDS: FERROUS SULFATE 325MG TAB PO SCH (08:39)
[2018-05-28] MEDS: ENOXAPARIN 40 MG/0.4 ML SYRINGE (J1650) SC SCH (08:39)
[2018-05-28] MEDS: MULTIVITAMINS/MINERALS THERAP 1 TAB PO SCH (08:39)
[2018-05-28] MEDS: NS 1,000 ML IV SCH ×2 (08:45→18:53)
--- NOTE | 2018-05-28 10:10 | CR.PDOC ---
General Date of Consultation: May 28, 2018 Referring Provider: SHANTA SEXTON DO Consultation REASON FOR CONSULTATION/CHIEF COMPLAINT: Dr. Sexton was advised by Dr. Calix to get a palliative care consult HISTORY OF PRESENT ILLNESS: 78 year old with metastatic endometrial cancer (stage 4) s/p hysterectomy. She stated she fell at home and was unable to get up for 2 hours, then finally got up and fell again and was brought to [facility] by ambulance. She thinks she has been here for about 2 weeks. He became pancytopenic after her last topotecan infusion and also developed severe diarrhea and hypercalcemia. ALLERGIES: Please see below. HOME MEDICATIONS: Please see below. I sent this morning talking with Julieta about her current state and her understanding of her chronic illness. She did not seem to know/understand much other than she had "cervical cancer" and was not sure what/if there were any further plans for chemotherapy. She stated she is doing PT. She has to sit in a chair to engage in PT which consists of raising her arms 20 times and extending her legs. She has a walker and stated she can use that with 2 assist for a limited period of time. She reported she spends the majority of 24 hours in bed, and she naps frequently during that time. She stated she is not having pain. She is dyspneic at times and has a productive cough producing green sputum. She is trying to use incentive spirometer but she finds it difficult to use at this point, stating she doesn't have the strength or energy to raise the spirometer adequately. She is wearing brief and has a PureWick urinary device which is suctioning yellow urine. She stated she finds this much easier and better tolerated than getting OOB to use the bedside commode, though on occasion she does use that as well. She stated she [facility]ends [facility] [employer] in [place] but has not seen anyone from there since this hospitalization. She is familiar with Chaplain Jose Antonio here at [facility] and she would like him to visit with her as he has provided good spiritual comfort for her during past hospitalizations. O: She as alert, oriented, in no acute distress. She exhibited appropriate humor at times and appeared to be in fairly good spirits. She appears chronically ill, and only complaint was dry mouth. She became a bit dyspneic while talking with me and also had shallow coughing with scant sputum prodiction. LABORATORY DATA: Please see below. I discussed with her a previous CT scan showed metastatic disease to her liver and lungs.I asked her if she would prefer to be at home with her sisters and she stated she would. ASSESSMENT/PLAN: 1. Given her current performance status, weakness and intolerance of ch emotherapy, in my clinical opinion she is more appropriate for hospice referral. She could return home in the care of her sisters if they are able to provide care and have nursing visits and someone regional hr manager to help the family manage. I explained to her it is not unheard of for someone to actually "graduate" from hospice if their health status improves and in that case she would be discharged from hospice and could be followed up with her primary care provider or in the Palliative [facility]. She did give me permission to call her sisters to discuss our visit this morning. 2. I will contact Oscar Nuñez to see Julieta and provide spiritual support. 3. She does have HCP, is a DNR/DNI and there is a copy of her MOLST in her record. She does not have any limitations on antibiotics, feeding tubes, dialysis. Vital Signs/I&O Vital Signs Date Time Temp Pulse Resp B/P (MAP) Pulse Ox O2 Delivery O2 Flow Rate FiO2 05/28/18 08:00 98.9 107 18 127/56 (79) 96 05/22/18 00:15 Room Air I&O- Last 24 Hours up to 6 AM 05/28/18 06:00 Intake Total 180 ml Output Total 400 ml Balance -220 ml Laboratory Data Labs 24H Laboratory Tests 2 05/28/18 04:58: Immature Granulocyte % (Auto) , White Blood Count 18.9H, Red Blood Count 3.33L, Hemoglobin 8.7L, Hematocrit 27.6L, Mean Corpuscular Volume 82.9, Mean Corpuscular Hemoglobin 26.1L, Mean Corpuscular Hemoglobin Concent 31.5L, Red Cell Distribution Width 18.2H, Platelet Count 153, Monocytes # (Auto) , Nucleated Red Blood Cells % (auto) 0.8H, Neutrophils 73, Band Neutrophils 11, Lymphocytes (Manual) 4L, Monocytes (Manual) 5, Basophils (Manual) 1, Metamyelocytes 2H, Myelocytes 4H, Toxic Granulation 1+, Dohle Bodies 1+, Platelet Estimate NORMAL, Polychromasia 1+, Anisocytosis 1+, Anion Gap 6L, Glomerular Filtration Rate > 60.0, Calcium Level 8.3L, Aspartate Amino Transf (AST/SGOT) 48H, Alanine Aminotransferase (ALT/SGPT) 26, Alkaline Phosphatase 365H, Total Bilirubin 0.5, Direct Bilirubin 0.2, Total Protein 4.9L, Albumin 1.5L, Albumin/Globulin Ratio 0.44L CBC/BMP Laboratory Tests 05/28/18 04:58 Red Blood Count 3.33 L, Mean Corpuscular Volume 82.9, Mean Corpuscular Hemoglobin 26.1 L, Mean Corpuscular Hemoglobin Concent 31.5 L, Red Cell Distribution Width 18.2 H, Monocytes # (Auto) Microbiology Microbiology 05/24/18 Blood Culture - Preliminary, Resulted No Growth after 72 hours. All specime... 05/23/18 Blood Culture - Final, Complete NO GROWTH AFTER 5 DAYS 05/21/18 Blood Culture - Final, Complete NO GROWTH AFTER 5 DAYS 05/26/18 Urine Culture - Final, Complete Providencia Alcalifaciens Allergies Coded Allergies: No Known Allergies (Verified , 01/30/06) Home Medications Scheduled (Vision Formula 2) 1 Tab Tab, 1 TAB PO DAILY, (Reported) Fenofibrate (Fenofibrate) 145 Mg Tab, 145 MG PO DAILY, (Reported) Ferrous Sulfate (Ferrous Sulfate) 325 Mg Tab, 325 MG PO DAILY, (Reported) Multivitamins *[facility] STOCKED* (Thera M Plus *[facility] STOCKED*) 1 Tab Tab, 1 TAB PO DAILY, (Reported) Travoprost (Travatan Z) 50 Drop/2.5 Ml Soln, 1 DROP OD QHS, (Reported) Neela BARRAGAN May 28, 2018 10:02
[2018-05-28 12:00] VITALS: BP 121/65
[2018-05-28] MEDS: ONDANSETRON 4MG/2ML VIAL (J2405) IV PRN (12:43)
[2018-05-28 16:00] VITALS: BP 128/69
--- NOTE | 2018-05-28 16:45 | IPNPDOC ---
Text Note Date of Service The patient was seen on 05/28/18. NOTE SUBJECTIVE: The patient is seen and examined in the room today. Patient continues having poor oral intake. She continues having intermittent cough. No fever or chill. Denies diarrhea. Denies urinary frequency, urgency or hematuria. She is complaining about significant weakness. She understands that her overall prognosis is not great. She does not mind taking to hospice service to get more information. OBJECTIVE: VITAL SIGNS: Listed below. GENERAL: fatigued, alert and awake. HEENT: Positive temporal wasting. Normocephalic, atraumatic. Extraocular motor grossly intact. CARDIOVASCULAR: Tachycardia. Positive S1, S2. LUNGS: Clear to auscultation bilaterally. ABDOMEN: Soft, nontender, nondistended. Bowel sounds present. EXTREMITIES: No edema. LABORATORY DATA: Listed below. ASSESSMENT AND PLAN: #. Stage IV endometrial cancer. - The patient has had pancytopenia, suspect secondary to chemotherapy. - Patient is currently deconditioned. Continue physical therapy and occupational therapy. - Oncologist, Dr. Calix, consulted. Palliative care service contacted. Poor overall prognosis. - Patient agrees seeing hospice service to get more information. Hospice consulted. #. Critical neutropenia. Neutropenia is improving. # Severe protein caloric malnutrition. - Ensure supplement as tolerated. - Dietary consult. #. Thrombocytopenia. - The patient had a platelet transfusion on 05/21/2018 and 05/23/2018. #. Acute kidney injury - Resolved. - Continue having poor oral intake. Continue fluid support. #. Deep vein thrombosis (DVT) prophylaxis. - The patient has severe thrombocytopenia. The patient will be on thromboembolic-deterrent stockings (TEDS) and compression. VS,Fishbone, I+O VS, Fishbone, I+O Laboratory Tests 05/28/18 04:58 Red Blood Count 3.33 L, Mean Corpuscular Volume 82.9, Mean Corpuscular Hem oglobin 26.1 L, Mean Corpuscular Hemoglobin Concent 31.5 L, Red Cell Distribution Width 18.2 H, Monocytes # (Auto) Vital Signs Date Time Temp Pulse Resp B/P (MAP) Pulse Ox O2 Delivery O2 Flow Rate FiO2 05/28/18 12:00 98.0 95 18 121/65 (83) 100 05/22/18 00:15 Room Air I&O- Last 24 Hours up to 6 AM 05/28/18 06:00 Intake Total 180 ml Output Total 400 ml Balance -220 ml SHANTA SEXTON DO May 28, 2018 16:45
[2018-05-28 20:00] VITALS: BP 114/57
[2018-05-28] MEDS: LATANOPROST 0.005% OPHTH SOLN 2.5 ML OD SCH (21:16)
[2018-05-28 23:59] VITALS: BP 122/63
[2018-05-29 04:00] VITALS: BP 131/69
[2018-05-29] MEDS: NS 1,000 ML IV SCH ×2 (05:25→16:11)
[2018-05-29 05:57] LABS: HEMATOCRIT 28.2 % (36.0-47.0); HEMOGLOBIN 8.8 g/dl (12.0-15.5); MEAN CORPUSCULAR HEMOGLOBIN 26.5 pg (27.0-33.0); MEAN CORPUSCULAR HGB CONC 31.2 g/dl (32.0-36.5); MEAN CORPUSCULAR VOLUME 84.9 fl (80.0-96.0); PLATELET COUNT, AUTOMATED 215 10^3/uL (150-450); RED BLOOD COUNT 3.32 10^6/uL (4.00-5.40); WHITE BLOOD COUNT 20.4 10^3/uL (4.0-10.0)
[2018-05-29 06:18] LABS: BLOOD UREA NITROGEN 12 MG/DL (7-18); CALCIUM LEVEL 8.2 MG/DL (8.8-10.2); CARBON DIOXIDE LEVEL 21 MEQ/L (21-32); CHLORIDE LEVEL 112 MEQ/L (98-107); CREATININE FOR GFR 0.46 MG/DL (0.55-1.30); GLOMERULAR FILTRATION RATE > 60.0 (>39); GLUCOSE, FASTING 98 MG/DL (70-100); POTASSIUM SERUM 3.4 MEQ/L (3.5-5.1); SODIUM LEVEL 140 MEQ/L (136-145)
[2018-05-29 06:37] LABS: EOSINOPHILS 1 % (0-5); LYMPHOCYTES 4 % (16-52); METAMYELOCYTES 4 % (0-0); MONOCYTES 7 % (0-8); NEUTROPHILS 79 % (35-75)
[2018-05-29 06:38] LABS: ANISOCYTOSIS 2+; HYPOCHROMASIA 1+; PLATELET ESTIMATE NORMAL (NORMAL)
[2018-05-29 06:39] LABS: DOHLE BODIES 1+; POLYCHROMASIA 1+
[2018-05-29 08:00] VITALS: BP 117/56
[2018-05-29] MEDS ORDERED: POTASSIUM CHLORIDE 10 MEQ SR TABLET PO ONE (09:00)
[2018-05-29] MEDS: ENOXAPARIN 40 MG/0.4 ML SYRINGE (J1650) SC SCH (10:19)
[2018-05-29] MEDS: FERROUS SULFATE 325MG TAB PO SCH (10:20)
[2018-05-29] MEDS: MULTIVITAMINS/MINERALS THERAP 1 TAB PO SCH (10:20)
[2018-05-29] MEDS: ONDANSETRON 4MG/2ML VIAL (J2405) IV PRN (10:29)
[2018-05-29 12:00] VITALS: BP 113/58
[2018-05-29 15:53] VITALS: BP 99/53
--- NOTE | 2018-05-29 18:32 | IPNPDOC ---
Text Note Date of Service The patient was seen on 05/29/18. NOTE SUBJECTIVE: The patient is seen and examined in the room today. Patient still has very poor oral intake. No fever or chill. Denies diarrhea. Denies urinary frequency, urgency or hematuria. Denies significant cough. She states she is not sure about hospice. OBJECTIVE: VITAL SIGNS: Listed below. GENERAL: fatigued, alert and awake. HEENT: Positive temporal wasting. Normocephalic, atraumatic. Extraocular motor grossly intact. CARDIOVASCULAR: Tachycardia. Positive S1, S2. LUNGS: Clear to auscultation bilaterally. ABDOMEN: Soft, nontender, nondistended. Bowel sounds present. EXTREMITIES: No edema. LABORATORY DATA: Listed below. ASSESSMENT AND PLAN: #. Stage IV endometrial cancer. - Patient was on palliative chemotherapy prior to admission. The patient had pancytopenia, suspect secondary to chemotherapy. - Patient is currently deconditioned. Continue physical therapy and occupational therapy. - Oncologist, Dr. Calix, consulted. Palliative care service contacted. Poor overall prognosis. - Hospice consulted. Patient is not sure about hospice. Discussed with patient's sister with regarding patient's overall prognosis. #. Critical neutropenia. Neutropenia is improving. #. Thrombocytopenia. - The patient had a platelet transfusion on 05/21/2018 and 05/23/2018. # Severe protein caloric malnutrition. - Ensure supplement as tolerated. - Dietary consult. #. Acute kidney injury - Resolved. S/P IV support. #. Deep vein thrombosis (DVT) prophylaxis. - The patient has severe thrombocytopenia. The patient will be on thromboembolic-deterrent stockings (TEDS) and compression. VS,Fishbone, I+O VS, Fishbone, I+O Laboratory Tests 05/29/18 05:40 Red Blood Count 3.32 L, Mean Corpuscular Volume 84.9, Mean Corpuscular Hemoglobin 26.5 L, Mean Corpuscular Hemoglobin Concent 31.2 L, Red Cell Distribution Width 19.1 H, Calcium Level 8.2 L Vital Signs Date Time Temp Pulse Resp B/P (MAP) Pulse Ox O2 Delivery O2 Flow Rate FiO2 05/29/18 15:53 99.0 105 18 99/53 (28) 94 I&O- Last 24 Hours up to 6 AM 05/29/18 06:00 Intake Total 3840 ml Output Total 900 ml Balance 2940 ml SUNG,WOMACK DO May 29, 2018 18:32
[2018-05-29 20:00] VITALS: BP 100/51
[2018-05-29] MEDS: LATANOPROST 0.005% OPHTH SOLN 2.5 ML OD SCH (20:54)
[2018-05-29] MEDS: ACETAMINOPHEN TAB 650MG DOSE (2X325MG) PO PRN (22:13)
[2018-05-29 23:59] VITALS: BP 111/58
[2018-05-30 04:00] VITALS: BP 107/53
[2018-05-30 06:00] LABS: HEMATOCRIT 28.7 % (36.0-47.0); HEMOGLOBIN 9.1 g/dl (12.0-15.5); MEAN CORPUSCULAR HGB CONC 31.7 g/dl (32.0-36.5); MEAN CORPUSCULAR VOLUME 85.2 fl (80.0-96.0); PLATELET COUNT, AUTOMATED 294 10^3/uL (150-450); RED BLOOD COUNT 3.37 10^6/uL (4.00-5.40); WHITE BLOOD COUNT 21.6 10^3/uL (4.0-10.0)
[2018-05-30 07:49] VITALS: BP 117/59
[2018-05-30] MEDS ORDERED: POTASSIUM CHLORIDE 10 MEQ SR TABLET PO ONE (08:00)
[2018-05-30] MEDS: ONDANSETRON 4MG/2ML VIAL (J2405) IV PRN (08:22)
[2018-05-30] MEDS: FERROUS SULFATE 325MG TAB PO SCH (08:23)
[2018-05-30] MEDS: MULTIVITAMINS/MINERALS THERAP 1 TAB PO SCH (08:23)
[2018-05-30] MEDS: ENOXAPARIN 40 MG/0.4 ML SYRINGE (J1650) SC SCH (08:23)
[2018-05-30 12:03] VITALS: BP 124/70
[2018-05-30] MEDS: MEGESTROL 40 MG TAB PO SCH ×2 (12:15→21:08)
--- NOTE | 2018-05-30 15:43 | IPNPDOC ---
Text Note Date of Service The patient was seen on 05/30/18. NOTE SUBJECTIVE: The patient is seen and examined in the room today. Patient states she has more intake this morning. Patient has noticed increased swellings in dependent area. No fever or chill. Denies diarrhea. Denies urinary frequency, urgency or hematuria. Denies significant cough. OBJECTIVE: VITAL SIGNS: Listed below. GENERAL: fatigued, alert and awake. HEENT: Positive temporal wasting. Normocephalic, atraumatic. Extraocular motor grossly intact. CARDIOVASCULAR: Tachycardia. Positive S1, S2. LUNGS: Clear to auscultation bilaterally. ABDOMEN: Soft, nontender, nondistended. Bowel sounds present. EXTREMITIES: Positive edema. LABORATORY DATA: Listed below. ASSESSMENT AND PLAN: #. Stage IV endometrial cancer. - Patient was on palliative chemotherapy prior to admission. The patient had pancytopenia, suspect secondary to chemotherapy. - Patient is currently deconditioned. Continue physical therapy and occupational therapy. - Oncologist, Dr. Calix, consulted. Palliative care service contacted. Poor overall prognosis. - Hospice consulted. Patient is not sure about hospice. Discussed with patient's sister with regarding patient's overall prognosis. - Patient seems having better oral intake this morning. Trial of megace. IV fluid discontinued. #. Critical neutropenia. Neutropenia is improving. #. Thrombocytopenia. - The patient had a platelet transfusion on 05/21/2018 and 05/23/2018. # Severe protein caloric malnutrition. - Ensure supplement as tolerated. - Dietary consult. #. Acute kidney injury - Resolved. S/P IV support. #. Deep vein thrombosis (DVT) prophylaxis. - The patient has severe thrombocytopenia. The patient will be on thromb oembolic-deterrent stockings (TEDS) and compression. VS,Fishbone, I+O VS, Fishbone, I+O Laboratory Tests 05/30/18 05:30 Red Blood Count 3.37 L, Mean Corpuscular Volume 85.2, Mean Corpuscular Hemoglobin 27.0, Mean Corpuscular Hemoglobin Concent 31.7 L, Red Cell Distribution Width 19.7 H Vital Signs Date Time Temp Pulse Resp B/P (MAP) Pulse Ox O2 Delivery O2 Flow Rate FiO2 05/30/18 12:03 98.2 103 18 124/70 (88) 95 I&O- Last 24 Hours up to 6 AM 05/30/18 06:00 Intake Total 240 ml Output Total 600 ml Balance -360 ml SHANTA SEXTON DO May 30, 2018 15:43
[2018-05-30 16:00] VITALS: BP 122/62
[2018-05-30 20:00] VITALS: BP 112/54
[2018-05-30] MEDS: LATANOPROST 0.005% OPHTH SOLN 2.5 ML OD SCH (21:08)
[2018-05-30 23:59] VITALS: BP 102/54
[2018-05-31 04:00] VITALS: BP 110/52
[2018-05-31 05:41] LABS: HEMATOCRIT 29.8 % (36.0-47.0); HEMOGLOBIN 9.5 g/dl (12.0-15.5); MEAN CORPUSCULAR HEMOGLOBIN 27.2 pg (27.0-33.0); MEAN CORPUSCULAR HGB CONC 31.9 g/dl (32.0-36.5); MEAN CORPUSCULAR VOLUME 85.4 fl (80.0-96.0); RED BLOOD COUNT 3.49 10^6/uL (4.00-5.40); WHITE BLOOD COUNT 23.2 10^3/uL (4.0-10.0)
[2018-05-31 05:47] LABS: PLATELET COUNT, AUTOMATED 418 10^3/uL (150-450)
[2018-05-31 06:09] LABS: BLOOD UREA NITROGEN 12 MG/DL (7-18); CALCIUM LEVEL 8.3 MG/DL (8.8-10.2); CARBON DIOXIDE LEVEL 24 MEQ/L (21-32); CHLORIDE LEVEL 109 MEQ/L (98-107); CREATININE FOR GFR 0.41 MG/DL (0.55-1.30); GLOMERULAR FILTRATION RATE > 60.0 (>39); GLUCOSE, FASTING 82 MG/DL (70-100); MAGNESIUM LEVEL 1.8 MG/DL (1.8-2.4); POTASSIUM SERUM 3.8 MEQ/L (3.5-5.1); SODIUM LEVEL 138 MEQ/L (136-145)
[2018-05-31 08:00] VITALS: BP 114/77
[2018-05-31] MEDS: FERROUS SULFATE 325MG TAB PO SCH (09:40)
[2018-05-31] MEDS: ENOXAPARIN 40 MG/0.4 ML SYRINGE (J1650) SC SCH (09:40)
[2018-05-31] MEDS: MULTIVITAMINS/MINERALS THERAP 1 TAB PO SCH (09:40)
[2018-05-31] MEDS: MEGESTROL 40 MG TAB PO SCH ×2 (09:40→21:52)
[2018-05-31 12:00] VITALS: BP 138/77
[2018-05-31] MEDS ORDERED: SLF 3 ML SYR IV PRN (14:30)
[2018-05-31 16:00] VITALS: BP 124/64
[2018-05-31] MEDS ORDERED: MIRALAX *UNIT DOSE* 17GM PACKET PO PRN (16:30)
--- NOTE | 2018-05-31 17:41 | IPNPDOC ---
Text Note Date of Service The patient was seen on 05/31/18. NOTE SUBJECTIVE: The patient is seen and examined in the room today. Patient still has poor oral. Patient states she can not finish the Ensure supplement. The peripheral swellings are improving. No fever or chill. Denies diarrhea. Denies urinary frequency, urgency or hematuria. Denies significant cough. OBJECTIVE: VITAL SIGNS: Listed below. GENERAL: fatigued, alert and awake. HEENT: Positive temporal wasting. Normocephalic, atraumatic. Extraocular motor grossly intact. CARDIOVASCULAR: Tachycardia. Positive S1, S2. LUNGS: Clear to auscultation bilaterally. ABDOMEN: Soft, nontender, nondistended. Bowel sounds present. EXTREMITIES: Positive peripheral edema. LABORATORY DATA: Listed below. ASSESSMENT AND PLAN: #. Stage IV endometrial cancer. - Patient was on palliative chemotherapy prior to admission. The patient had pancytopenia, suspect secondary to chemotherapy. - Patient is currently deconditioned. Continue physical therapy and occupational therapy. - Oncologist, Dr. Calix, consulted. Palliative care service contacted. Poor overall prognosis. - Hospice consulted. Patient is not sure about hospice. Discussed with patient's sister with regarding patient's overall prognosis. - Trial of megace. There was concern for worsening peripheral swelling so IV fluid discontinued. #. Leukocytosis - Previous patient had critical neutropenia. Patient had 3 doses of neupogen. - Denies fever or chill. Denies cough, diarrhea or urinary symptoms. #. Thrombocytopenia. - The patient had a platelet transfusion on 05/21/2018 and 05/23/2018. # Severe protein caloric malnutrition. - Ensure supplement as tolerated. - Dietary consult. #. Acute kidney injury - Resolved. S/P IV support. #. Deep vein thrombosis (DVT) prophylaxis. - The patient has severe thrombocytopenia. The patient will be on thromboembolic-deterrent stockings (TEDS) and compression. VS,Fishbone, I+O VS, Fishbone, I+O Laboratory Tests 05/31/18 05:13 Red Blood Count 3.49 L, Mean Corpuscular Volume 85.4, Mean Corpuscular Hemoglobin 27.2, Mean Corpuscular Hemoglobin Concent 31.9 L, Red Cell Distribution Width 20.1 H, Calcium Level 8.3 L Vital Signs Date Time Temp Pulse Resp B/P (MAP) Pulse Ox O2 Delivery O2 Flow Rate FiO2 05/31/18 12:00 97.9 124 22 138/77 (99) 77 I&O- Last 24 Hours up to 6 AM 05/31/18 06:00 Intake Total 960 ml Output Total 800 ml Balance 160 ml SHANTA SEXTON DO May 31, 2018 17:41
[2018-05-31 20:00] VITALS: BP 118/69
[2018-05-31] MEDS: LATANOPROST 0.005% OPHTH SOLN 2.5 ML OD SCH (21:52)
[2018-05-31] MEDS: SLF 3 ML SYR IV SCH (21:53)
[2018-05-31 23:59] VITALS: BP 112/55
[2018-06-01 04:00] VITALS: BP 108/52
[2018-06-01] MEDS: SLF 3 ML SYR IV SCH ×3 (05:10→21:23)
[2018-06-01 05:26] LABS: HEMATOCRIT 30.3 % (36.0-47.0); HEMOGLOBIN 9.4 g/dl (12.0-15.5); MEAN CORPUSCULAR HEMOGLOBIN 26.4 pg (27.0-33.0); MEAN CORPUSCULAR VOLUME 85.1 fl (80.0-96.0); RED BLOOD COUNT 3.56 10^6/uL (4.00-5.40); WHITE BLOOD COUNT 27.4 10^3/uL (4.0-10.0)
[2018-06-01 05:34] LABS: PLATELET COUNT, AUTOMATED 528 10^3/uL (150-450)
[2018-06-01 05:53] LABS: BLOOD UREA NITROGEN 16 MG/DL (7-18); CALCIUM LEVEL 8.9 MG/DL (8.8-10.2); CARBON DIOXIDE LEVEL 22 MEQ/L (21-32); CHLORIDE LEVEL 108 MEQ/L (98-107); CREATININE FOR GFR 0.46 MG/DL (0.55-1.30); GLOMERULAR FILTRATION RATE > 60.0 (>39); GLUCOSE, FASTING 80 MG/DL (70-100); MAGNESIUM LEVEL 1.9 MG/DL (1.8-2.4); POTASSIUM SERUM 3.9 MEQ/L (3.5-5.1); SODIUM LEVEL 138 MEQ/L (136-145)
[2018-06-01 08:22] VITALS: BP 112/72
[2018-06-01] MEDS: ENOXAPARIN 40 MG/0.4 ML SYRINGE (J1650) SC SCH (09:41)
[2018-06-01] MEDS: FERROUS SULFATE 325MG TAB PO SCH (09:41)
[2018-06-01] MEDS: DOCUSATE SODIUM 100 MG CAP PO SCH (09:41)
[2018-06-01] MEDS: MULTIVITAMINS/MINERALS THERAP 1 TAB PO SCH (09:41)
[2018-06-01] MEDS: MEGESTROL 40 MG TAB PO SCH ×2 (09:42→21:25)
[2018-06-01] MEDS: ONDANSETRON 4MG/2ML VIAL (J2405) IV PRN (10:16)
[2018-06-01 12:00] VITALS: BP 108/72
[2018-06-01 16:00] VITALS: BP 104/66
--- NOTE | 2018-06-01 17:22 | IPNPDOC ---
Subjective Date Seen The patient was seen on 06/01/18. Subjective Chief Complaint/HPI Patient seen and examined at the bedside. She tells me that she continues to have a decreased appetite and generalized weakness. Objective Physical Examination General Exam: Positive: Alert, Cooperative, No Acute Distress ENT Exam: Positive: Other ENT (bitemporal wasting) Chest Exam: Positive: Diminished Heart Exam: Positive: Rate Normal, Normal S1, Normal S2 Abdomen Exam: Positive: Soft; Negative: Tenderness Extremity Exam: Positive: Swelling (2+ swelling in the lower extremities b ilaterally); Negative: Tenderness Psych Exam: Positive: Oriented x 3 Assessment /Plan Plan/VTE VTE Prophylaxis Ordered?: Yes Plan Stage IV Endometrial cancer. Patient on palliative chemotherapy prior to admission. The patient had pancytopenia, suspect secondary to chemotherapy. Patient has continually declined functionally as her clinical status has worsened, as well as her appetite. Discussion held at the bedside today with the patient and her two sisters--poor overall prognosis discussed. The patient and family [facility], PFS on board Leukocytosis 2/2 Neupogen No signs/symptoms of infection at this time Thrombocytopenia, resolved s/p platelet transfusion on 05/21/2018 and 05/23/2018. Severe protein caloric malnutrition 2/2 Underlying Malignancy Ensure supplement as tolerated. Dietary input appreciated. Acute kidney injury, resolved Deep vein thrombosis (DVT) prophylaxis. (TEDS) and compression. Dispo--Hospice consulted, PFS on board. VS, I&O, 24H, Fishbone Vital Signs/I&O Vital Signs Date Time Temp Pulse Resp B/P (MAP) Pulse Ox O2 Delivery O2 Flow Rate FiO2 06/01/18 16:00 99.1 110 18 104/66 (79) 94 I&O- Last 24 Hours up to 6 AM 06/01/18 06:00 Intake Total 550 ml Output Total 750 ml Balance -200 ml Laboratory Data 24H LABS Laboratory Tests 2 06/01/18 04:45: Nucleated Red Blood Cells % (auto) 0.3H, Anion Gap 8, Glomerular Filtration Rate > 60.0, Blood Urea Nitrogen 16, Creatinine 0.46L, Sodium Level 138, Potassium Level 3.9, Chloride Level 108H, Carbon Dioxide Level 22, Calcium Level 8.9, Magnesium Level 1.9 CBC/BMP Laboratory Tests 06/01/18 04:45 Red Blood Count 3.56 L, Mean Corpuscular Volume 85.1, Mean Corpuscular Hemoglobin 26.4 L, Mean Corpuscular Hemoglobin Concent 31.0 L, Red Cell Distribution Width 20.3 H, Calcium Level 8.9 Microbiology Microbiology 05/31/18 Blood Culture, Received Pending 05/31/18 Blood Culture, Received Pending 05/24/18 Blood Culture - Final, Complete NO GROWTH AFTER 5 DAYS 05/23/18 Blood Culture - Final, Complete NO GROWTH AFTER 5 DAYS 05/26/18 Urine Culture - Final, Complete Providencia Alcalifaciens MARIBEL JACOBS MD Jun 01, 2018 17:22
[2018-06-01 20:00] VITALS: BP 104/64
[2018-06-01] MEDS: LATANOPROST 0.005% OPHTH SOLN 2.5 ML OD SCH (21:25)
[2018-06-02] VITALS (7 sets, daily range): BP systolic 98–122; BP diastolic 58–74
[2018-06-02] MEDS: SLF 3 ML SYR IV SCH ×3 (04:51→20:52)
[2018-06-02 05:41] LABS: HEMATOCRIT 29.2 % (36.0-47.0); HEMOGLOBIN 9.2 g/dl (12.0-15.5); MEAN CORPUSCULAR HEMOGLOBIN 26.4 pg (27.0-33.0); MEAN CORPUSCULAR HGB CONC 31.5 g/dl (32.0-36.5); MEAN CORPUSCULAR VOLUME 83.7 fl (80.0-96.0); PLATELET COUNT, AUTOMATED 594 10^3/uL (150-450); RED BLOOD COUNT 3.49 10^6/uL (4.00-5.40); WHITE BLOOD COUNT 28.7 10^3/uL (4.0-10.0)
[2018-06-02 06:07] LABS: BLOOD UREA NITROGEN 18 MG/DL (7-18); CALCIUM LEVEL 9.1 MG/DL (8.8-10.2); CARBON DIOXIDE LEVEL 23 MEQ/L (21-32); CHLORIDE LEVEL 109 MEQ/L (98-107); CREATININE FOR GFR 0.54 MG/DL (0.55-1.30); GLOMERULAR FILTRATION RATE > 60.0 (>39); GLUCOSE, FASTING 85 MG/DL (70-100); MAGNESIUM LEVEL 2.1 MG/DL (1.8-2.4); POTASSIUM SERUM 4.1 MEQ/L (3.5-5.1); SODIUM LEVEL 140 MEQ/L (136-145)
[2018-06-02] MEDS: MULTIVITAMINS/MINERALS THERAP 1 TAB PO SCH (08:55)
[2018-06-02] MEDS: DOCUSATE SODIUM 100 MG CAP PO SCH (08:55)
[2018-06-02] MEDS: MEGESTROL 40 MG TAB PO SCH ×2 (08:55→20:52)
[2018-06-02] MEDS: ENOXAPARIN 40 MG/0.4 ML SYRINGE (J1650) SC SCH (08:55)
[2018-06-02] MEDS: FERROUS SULFATE 325MG TAB PO SCH (08:55)
[2018-06-02] MEDS: ONDANSETRON 4MG/2ML VIAL (J2405) IV PRN (13:01)
--- NOTE | 2018-06-02 14:17 | IPNPDOC ---
Subjective Date Seen The patient was seen on 06/02/18. Subjective Chief Complaint/HPI Patient seen and examined at the bedside. She denies any acute complaints at this moment. States that she was able to tolerate her breakfast this morning. She is awaiting hospice. Objective Physical Examination General Exam: Positive: Alert, Cooperative, No Acute Distress ENT Exam: Positive: Other ENT (bitemporal wasting) Chest Exam: Positive: Diminished Heart Exam: Positive: Rate Normal, Normal S1, Normal S2 Abdomen Exam: Positive: Soft; Negative: Tenderness Extremity Exam: Positive: Swelling (2+ swelling in the lower extremities bilaterally); Negative: Tenderness Psych Exam: Positive: Oriented x 3 Assessment /Plan Plan/VTE VTE Prophylaxis Ordered?: Yes Plan Stage IV Endometrial cancer. Patient on palliative chemotherapy prior to admission. The patient had pancytopenia, suspect secondary to chemotherapy. Patient has continually declined functionally as her clinical status has wo rsened, as well as her appetite. Discussion held at the bedside on 06/01 with the patient and her two sisters--poor overall prognosis discussed. The patient and family have [facility], PFS on board Leukocytosis 2/2 Neupogen No signs/symptoms of infection at this time Thrombocytopenia, resolved s/p platelet transfusion on 05/21/2018 and 05/23/2018. Severe protein caloric malnutrition 2/2 Underlying Malignancy Ensure supplement as tolerated. Dietary input appreciated. Acute kidney injury, resolved Deep vein thrombosis (DVT) prophylaxis. (TEDS) and compression. Dispo--Hospice consulted, PFS on board. VS, I&O, 24H, Fishbone Vital Signs/I&O Vital Signs Date Time Temp Pulse Resp B/P (MAP) Pulse Ox O2 Delivery O2 Flow Rate FiO2 06/02/18 12:00 99.8 100 19 116/58 (77) 95 I&O- Last 24 Hours up to 6 AM 06/02/18 06:00 Intake Total 1480 ml Output Total 650 ml Balance 830 ml Laboratory Data 24H LABS Laboratory Tests 2 06/02/18 05:27: Nucleated Red Blood Cells % (auto) 0.2H, Anion Gap 8, Glomerular Filtration Rate > 60.0, Blood Urea Nitrogen 18, Creatinine 0.54L, Sodium Level 140, Potassium Level 4.1, Chloride Level 109H, Carbon Dioxide Level 23, Calcium Level 9.1, Magnesium Level 2.1 CBC/BMP Laboratory Tests 06/02/18 05:27 Red Blood Count 3.49 L, Mean Corpuscular Volume 83.7, Mean Corpuscular Hemoglobin 26.4 L, Mean Corpuscular Hemoglobin Concent 31.5 L, Red Cell Distr ibution Width 21.0 H, Calcium Level 9.1 Microbiology Microbiology 05/31/18 Blood Culture - Preliminary, Resulted No growth after 24 hours . All specim... 05/31/18 Blood Culture - Preliminary, Resulted No growth after 24 hours . All specim... 05/24/18 Blood Culture - Final, Complete NO GROWTH AFTER 5 DAYS 05/23/18 Blood Culture - Final, Complete NO GROWTH AFTER 5 DAYS 05/26/18 Urine Culture - Final, Complete Providencia AlcalifaciMARIBEL Urbina MD Jun 02, 2018 14:17
[2018-06-02] MEDS: LATANOPROST 0.005% OPHTH SOLN 2.5 ML OD SCH (20:51)
[2018-06-03 04:00] VITALS: BP 95/59
[2018-06-03 05:52] LABS: HEMATOCRIT 28.7 % (36.0-47.0); HEMOGLOBIN 9.1 g/dl (12.0-15.5); MEAN CORPUSCULAR HEMOGLOBIN 27.1 pg (27.0-33.0); MEAN CORPUSCULAR HGB CONC 31.7 g/dl (32.0-36.5); MEAN CORPUSCULAR VOLUME 85.4 fl (80.0-96.0); PLATELET COUNT, AUTOMATED 607 10^3/uL (150-450); RED BLOOD COUNT 3.36 10^6/uL (4.00-5.40); WHITE BLOOD COUNT 29.2 10^3/uL (4.0-10.0)
[2018-06-03] MEDS: SLF 3 ML SYR IV SCH (06:00)
[2018-06-03 06:08] LABS: BLOOD UREA NITROGEN 22 MG/DL (7-18); CALCIUM LEVEL 8.9 MG/DL (8.8-10.2); CARBON DIOXIDE LEVEL 24 MEQ/L (21-32); CHLORIDE LEVEL 108 MEQ/L (98-107); CREATININE FOR GFR 0.53 MG/DL (0.55-1.30); GLOMERULAR FILTRATION RATE > 60.0 (>39); GLUCOSE, FASTING 82 MG/DL (70-100); MAGNESIUM LEVEL 2.1 MG/DL (1.8-2.4); POTASSIUM SERUM 3.9 MEQ/L (3.5-5.1); SODIUM LEVEL 140 MEQ/L (136-145)
[2018-06-03 08:00] VITALS: BP 111/71
[2018-06-03] MEDS: ENOXAPARIN 40 MG/0.4 ML SYRINGE (J1650) SC SCH (09:07)
[2018-06-03] MEDS: FERROUS SULFATE 325MG TAB PO SCH (09:08)
[2018-06-03] MEDS: MEGESTROL 40 MG TAB PO SCH (09:08)
[2018-06-03] MEDS: MULTIVITAMINS/MINERALS THERAP 1 TAB PO SCH (09:08)
[2018-06-03] MEDS: DOCUSATE SODIUM 100 MG CAP PO SCH (09:08)
[2018-06-03] MEDS ORDERED: MORP20SO3 PO ×2 (09:58→12:13)
[2018-06-03] MEDS ORDERED: LORA0.5T11 PO ×2 (09:58→12:13)
[2018-06-03] MEDS ORDERED: HYOS125TA PO ×2 (09:58→12:13)
--- NOTE | 2018-06-03 16:40 | DS.PDOC ---
Discharge Summary General Date of Admission May 21, 2018 at 20:45 Date of Discharge 06/03/18 Specialist/Consultants Involve Dr. Calix of Hematology/Oncology, ZAC Malin for Palliative Care Discharge Summary PROCEDURES PERFORMED DURING STAY: None. ADMITTING/DISCHARGE DIAGNOSES: Stage IV endometrial cancer Leukocytosis secondary to Neupogen Thrombocytopenia Severe protein caloric malnutrition Intractable nausea Acute kidney injury COMPLICATIONS/CHIEF COMPLAINT: Dehydration,Hypercalcemia. HISTORY OF PRESENT ILLNESS: . 78-year-old female with past medical history of metastatic endometrial cancer status post hysterectomy, who was receiving chemotherapy with her last dose on 05/14/18 presented to the ER with a chief complaint of decreased by mouth intake, generalized weakness/lethargy, and nausea. The patient denied any complaints of fevers, chills, chest pain, palpitations, abdominal pain, recent travel, or sick contacts. In the ER, the patient was noted to be pancytopenic which was attributed to her chemotherapy. The patient was transfused blood products accordingly and admitted to the hospitalist service with a consult placed to hematology/oncology for further medical management. During hospitalization, the patient was transfused platelets and given Neupogen. The patient's platelet count subsequently improved, and her white blood cell count also trended upward. However, the patient's functional status and overall clinical condition continued to decline. She continued to have decreased by mouth intake, weakness, and generalized lethargy. The patient verbalized understanding of her poor long-term prognosis given her advanced malignancy. A family meeting was held with the patient and her 2 sisters, and they have decided on comfort measures only and transfer to the hospice house. DISCHARGE MEDICATIONS: Please see below. ALLERGIES: Please see below. PHYSICAL EXAMINATION ON DISCHARGE: VITAL SIGNS: Please see below. General Exam: Positive: Alert, Cooperative, No Acute Distress ENT Exam: Positive: Other ENT (bitemporal wasting) Chest Exam: Positive: Diminished Heart Exam: Positive: Rate Normal, Normal S1, Normal S2 Abdomen Exam: Positive: Soft; Negative: Tenderness Extremity Exam: Positive: Swelling (2+ swelling in the lower extremities bilaterally); Negative: Tenderness Psych Exam: Positive: Oriented x 3 LABORATORY DATA: Please see below. IMAGING: EXAM: CT Abdomen and Pelvis Without Contrast EXAM DATE/TIME: 05/21/2018 5:39 PM CLINICAL HISTORY: 78 years old, female; Signs and symptoms; Nausea and vomiting; Prior surgery; Surgery date: 6+ months; Surgery type: Hysterectomy, d&c; Additional info: Nausea/vomiting TECHNIQUE: Axial computed tomography images of the abdomen and pelvis without contrast. All CT scans at this facility use at least one of these dose optimization techniques: automated exposure control; mA and/or kV adjustment per patient size (includes targeted exams where dose is matched to clinical indication); or iterative reconstruction. Coronal and sagittal reformatted images were created and reviewed. COMPARISON: CT ABD PELVIS WITH CONTRAST 11/24/2017 3:07 PM FINDINGS: Lower thorax: Multiple pulmonary parenchymal nodules measure up to 2 x 3.1 cm. findings consistent with metastatic disease. ABDOMEN: Liver: Extensive necrotic metastatic disease in the liver the largest mass in the right lobe of the liver measuring 9.9 x 6.8 cm. Gallbladder and bile ducts: There has been a cholecystectomy. Pancreas: Normal. No ductal dilation. Spleen: Normal. No splenomegaly. Adrenals: Normal. No mass. Kidneys and ureters: Normal. No hydronephrosis. Stomach and bowel: Normal. No obstruction. No mucosal thickening. Appendix: No evidence of appendicitis. PELVIS: Bladder: Unremarkable as visualized. Reproductive: There has been a hysterectomy. ABDOMEN and PELVIS: Intraperitoneal space: Small amount of free fluid in the cul-de-sac. Bones/joints: Mild central spinal stenosis at L4-5. Soft tissues: Umbilical hernia. Vasculature: The aorta demonstrates moderate atherosclerotic calcification. Lymph nodes: Normal. No enlarged lymph nodes. IMPRESSION: 1. Multiple pulmonary parenchymal nodules measure up to 2 x 3.1 cm. Findings consistent with metastatic disease. 2. Extensive necrotic metastatic disease in the liver the largest mass in the right lobe of the liver measuring 9.9 x 6.8 cm. 3. There has been a cholecystectomy. 4. There has been a hysterectomy. CT of the right shoulder without IV contrast: The patient has known endometrial carcinoma with multiple cavitary metastatic lung nodules. Axial images are acquired helical scanning and a reformatted sagittal coronal projections. There is no fracture or dislocation. There are no lytic, blastic or destructive skeletal changes. Mineralization is normal. There are no calcifications. Impression: Negative CT of the right shoulder. However, the patient's known multiple cavitary the static lung nodules are again identified. AP PORTABLE CHEST: 05/25/2018 COMPARISON: PA lateral chest 04/12/2018. CLINICAL HISTORY: Neutropenic. Metastatic malignancy. FINDINGS: Upright portable chest shows the lungs hypoinflated compared to previous study. There are multiple parenchymal nodules bilaterally consistent with a known metastatic disease. The largest on the left is a 4.5 x 3.3 cm, unchanged. I do not see a definite pleural effusion or dense consolidation. The posterior lower lung zones cannot be evaluated on this hypoinflated portable chest. Heart size not enlarged. Aorta is without gross aneurysm, unchanged. Airway intact. Bones with some degenerative changes. No free air under the diaphragm. IMPRESSION: 1. Hypoinflated chest with bilateral metastatic lung nodules and without definite dense consolidation or effusion. PROGNOSIS: Poor prognosis ACTIVITY: As tolerated. DIET: As tolerated DISCHARGE PLAN: DISPOSITION: 70 Xfer Other. DISCHARGE INSTRUCTIONS: Follow-up at the hospice house DISCHARGE CONDITION: Stable. TIME SPENT ON DISCHARGE: Greater than 30 minutes. Vital Signs/I&Os Vital Signs Date Time Temp Pulse Resp B/P (MAP) Pulse Ox O2 Delivery O2 Flow Rate FiO2 06/03/18 08:00 97.6 104 17 111/71 (84) 95 I&O- Last 24 Hours up to 6 AM 06/03/18 06:00 Intake Total 560 ml Output Total 400 ml Balance 160 ml Laboratory Data Labs 24H Laboratory Tests 2 06/03/18 05:23: Anion Gap 8, Glomerular Filtration Rate > 60.0, Blood Urea Nitrogen 22H, Creatinine 0.53L, Sodium Level 140, Potassium Level 3.9, Chloride Level 108H, Carbon Dioxide Level 24, Calcium Level 8.9, Magnesium Level 2.1 06/03/18 05:24: Nucleated Red Blood Cells % (auto) 0.1H CBC/BMP Laboratory Tests 06/03/18 05:23 Calcium Level 8.9 06/03/18 05:24 Red Blood Count 3.36 L, Mean Corpuscular Volume 85.4, Mean Corpuscular Hemoglobin 27.1, Mean Corpuscular Hemoglobin Concent 31.7 L, Red Cell Distribution Width 21.1 H Microbiology Microbiology 05/31/18 Blood Culture - Preliminary, Resulted No Growth after 48 hours. All Specime... 05/31/18 Blood Culture - Preliminary, Resulted No Growth after 48 hours. All Specime... 05/24/18 Blood Culture - Final, Complete NO GROWTH AFTER 5 DAYS 05/26/18 Urine Culture - Final, Complete Providencia Alcalifaciens Discharge Medications Scheduled (Vision Formula 2) 1 Tab Tab, 1 TAB PO DAILY, (Reported) Travoprost (Travatan Z) 50 Drop/2.5 Ml Soln, 1 DROP OD QHS, (Reported) Scheduled PRN Hyoscyamine Sulfate (Hyoscyamine Sulfate) 0.125 Mg Sub, 0.125 MG PO Q4HP PRN for TERMINAL SECRETIONS Use sublingually if unable to swallow Lorazepam (Lorazepam) 0.5 Mg Tab, 0.5 MG PO Q4HP PRN for ANXIETY/AGITATION Use sublingually if unable to swallow Morphine Sulfate (Morphine Sulfate) 100 Mg/5 Ml Josefina, 0.25-1 ML PO Q2H PRN for PAIN OR DYSPNEA Use sublingually if unable to swallow Allergies Coded Allergies: No Known Allergies (Verified , 01/30/06) MARIBEL JACOBS MD Jun 03, 2018 16:39
== END 2018-06-03 11:03 | disposition hospice, inpatient (51) | DRG 808 ==
LOC: M ED 15:23 → M ED INP 20:45 → M PCU 05-22 00:47
PROVIDERS: ADMIT Internal Medicine; ATTEND Internal Medicine
PROC: 30233R1 Transfusion of Nonautologous Platelets into Peripheral Vein, Percutaneous Approach (ICD-10-PCS; principal; 2018-05-21)
DX: D61.810 Antineoplastic chemotherapy induced pancytopenia (principal); E43 Unspecified severe protein-calorie malnutrition; N17.9 Acute kidney failure, unspecified; C78.00 Secondary malignant neoplasm of unspecified lung; T45.1X5A Adverse effect of antineoplastic and immunosuppressive drugs, initial encounter; R19.7 Diarrhea, unspecified; C54.1 Malignant neoplasm of endometrium; E86.0 Dehydration; E78.5 Hyperlipidemia, unspecified; Z79.899 Other long term (current) drug therapy; D70.1 Agranulocytosis secondary to cancer chemotherapy; E83.52 Hypercalcemia